=== PATIENT | female | born 1975 | race Two or more races ===

== ENCOUNTER 2024-04-13 00:06 | Inpatient (IN) | payer OTHER, SELFPAY ==
[~2024-04-13] VITALS: Ht 160 cm; Wt 114.1 kg
[2024-04-13] VITALS (7 sets, daily range): BP systolic 121–138; BP diastolic 58–97; PULSE 72–85; RESP 17–25; TEMP 97.8–98.1; O2SAT 94–98
[2024-04-13] MEDS: LORazepam 0.5 MG TAB PO ONE (00:12)
[2024-04-13 00:40] LABS: Basophils # (auto) 0.1 10 ^3/uL (0-0.2); Basophils % (auto) 1.1 % (0.0-2.0); Eosinophils # (auto) 0.1 10 ^3/uL (0-0.8); Eosinophils % (auto) 0.8 % (0.0-7.0); Hematocrit 44.5 % (36.0-46.0); Hemoglobin 14.6 g/dL (12.2-16.2); Lymphocytes # (auto) 2.4 10 ^3/uL (0.4-5.4); Lymphocytes % (auto) 30.2 % (10.0-50.0); Mean Corpuscular Hemoglobin 27.3 pg (28.0-32.0); Mean Corpuscular Hgb Conc. 32.8 g/dL (32.0-36.0); Mean Corpuscular Volume 83.5 fL (80.0-100.0); Monocytes # (auto) 0.7 10 ^3/uL (0-1.3); Monocytes % (auto) 9.2 % (0.0-12.0); Neutrophils # (auto) 4.7 10 ^3/uL (1.6-8.6); Neutrophils % (auto) 58.7 % (37.0-80.0); Nucleated Red Blood Cells % 0.1 %; Red Blood Cells 5.33 10^6/uL (4.0-5.20); Red Cell Distribution Width 17.7 % (11.8-14.3); White Blood Cell 7.9 10^3/uL (4.4-10.8)
[2024-04-13 00:49] LABS: Alanine Aminotransferase 25 U/L (7-40); Albumin 4.2 g/dL (3.2-4.8); Alkaline Phosphatase 110 U/L (46-116); Anion Gap 12 (5-15); Aspartate Aminotransferase 33 U/L (13-40); BUN/Creatinine Ratio 16.9 (10.0-20.0); Bilirubin, Total 0.9 mg/dL (0.2-1.0); Blood Urea Nitrogen 15 mg/dL (9-23); Calcium 9.4 mg/dL (8.7-10.4); Carbon Dioxide 21 mmol/L (20-30); Chloride 106 mmol/L (98-107); Glucose 146 mg/dL (74-106); Potassium 3.5 mmol/L (3.5-5.1); Sodium 139 mmol/L (136-145); Total Protein 7.4 g/dL (5.7-8.2)
[2024-04-13 04:10] LABS: Urine Bacteria FEW /hpf (None Seen); Urine Blood 3+ /uL (Negative); Urine Clarity Turbid (Clear); Urine Color Yellow (Yellow); Urine Mucus FEW (None Seen); Urine Protein, UAD TRACE (Negative); Urine Specific Gravity 1.017 (1.001-1.035); Urine Urobilinogen Normal (Negative); Urine WBC 17 /hpf (0 - 5); Urine pH 5.5 (5.0-9.0)
[2024-04-13 04:14] LABS: Amphetamine Screen, Urine Pos (NEGATIVE); Barbiturate Scree,Urine Neg (NEGATIVE); Benzodiazephine Screen, Urine Neg (NEGATIVE); Cannabinoid Screen, Urine Pos (NEGATIVE); Cocaine Screen, Urine Neg (NEGATIVE); Opiate Scree,Urine Neg (NEGATIVE); Phencyclidine Screen, Urine Neg (NEGATIVE)
[2024-04-13] MEDS: FUROSEMIDE 40 MG/4 ML VIAL IV ONE (04:26)
[2024-04-13] MEDS ORDERED: NITROGLYCERIN 0.4 MG SL TAB SL PRN (04:30)
[2024-04-13] MEDS ORDERED: MORPHINE SULFATE INJ 2 MG/ml SYRG IV PRN (04:30)
[2024-04-13] MEDS ORDERED: ONDANSETRON HCL 4 MG/2 ML VIAL IV PRN (04:30)
[2024-04-13 04:43] LABS: Triglycerides 115 mg/dL (< 150)
[2024-04-13 04:44] LABS: LDL Cholesterol 82 mg/dL (< 100)
[2024-04-13 04:45] LABS: HDL Cholesterol 38 mg/dL (40-59)
[2024-04-13 04:46] LABS: Cholesterol 126 mg/dL (< 200)
[2024-04-13] MEDS: FUROSEMIDE 20 MG/2 ML VIAL IV SCH ×2 (06:27→19:51)
[2024-04-13] MEDS ORDERED: LORazepam 2MG/ML-1ML VIAL IV PRN (10:00)
[2024-04-13] MEDS: ASPirin 81 mg TAB PO SCH (10:13)
[2024-04-13] MEDS: CARVEDILOL 3.125 MG TAB PO SCH (10:13)
[2024-04-13] MEDS: LORazepam 2MG/ML-1ML VIAL IV ONE (10:20)
[2024-04-13] MEDS ORDERED: FUROSEMIDE 20 MG/2 ML VIAL IV SCH (19:30)
[2024-04-13] MEDS: cefTRIAXone 1GM/50ML D5W 50 ML IV ONE (19:49)
[2024-04-13] MEDS: ENOXAPARIN SOD 60 MG/0.6 ML SYRINGE SC ONE (20:14)
[2024-04-13] MEDS: TEMAZEPAM 15 MG CAP PO PRN (21:49)
[2024-04-13] MEDS: ATORVASTATIN 20 MG TAB PO SCH (21:50)
[2024-04-14] VITALS (9 sets, daily range): BP systolic 114–138; BP diastolic 75–96; PULSE 62–75; RESP 15–20; TEMP 97.5–98.7; O2SAT 95–99
[2024-04-14 06:42] LABS: Basophils # (auto) 0.1 10 ^3/uL (0-0.2); Eosinophils # (auto) 0.1 10 ^3/uL (0-0.8); Eosinophils % (auto) 2.4 % (0.0-7.0); Hematocrit 42.1 % (36.0-46.0); Lymphocytes # (auto) 1.7 10 ^3/uL (0.4-5.4); Lymphocytes % (auto) 27.8 % (10.0-50.0); Mean Corpuscular Hemoglobin 27.4 pg (28.0-32.0); Mean Corpuscular Hgb Conc. 33.2 g/dL (32.0-36.0); Mean Corpuscular Volume 82.4 fL (80.0-100.0); Monocytes # (auto) 0.7 10 ^3/uL (0-1.3); Monocytes % (auto) 12.1 % (0.0-12.0); Neutrophils # (auto) 3.5 10 ^3/uL (1.6-8.6); Neutrophils % (auto) 56.7 % (37.0-80.0); Nucleated Red Blood Cells % 0.1 %; Red Blood Cells 5.11 10^6/uL (4.0-5.20); Red Cell Distribution Width 17.3 % (11.8-14.3); White Blood Cell 6.1 10^3/uL (4.4-10.8)
[2024-04-14 06:47] LABS: Chloride 102 mmol/L (98-107); Potassium 3.2 mmol/L (3.5-5.1); Sodium 138 mmol/L (136-145)
[2024-04-14 06:48] LABS: Anion Gap 10 (5-15); Carbon Dioxide 26 mmol/L (20-30)
[2024-04-14 06:49] LABS: Calcium 8.7 mg/dL (8.7-10.4)
[2024-04-14 06:53] LABS: BUN/Creatinine Ratio 25.7 (10.0-20.0); Blood Urea Nitrogen 19 mg/dL (9-23); Glucose 122 mg/dL (74-106)
[2024-04-14] MEDS: ENOXAPARIN SOD 60 MG/0.6 ML SYRINGE SC SCH (09:14)
[2024-04-14] MEDS: cefTRIAXone 1GM/50ML D5W 50 ML IV SCH (09:14)
[2024-04-14] MEDS: SPIRONOLACTONE 25 MG TAB PO SCH (09:15)
[2024-04-14] MEDS: POTASSIUM CHL 20 Meq TABLET PO ONE (09:15)
[2024-04-14] MEDS: SACUBITRIL-VALSARTAN 24mg/26mg TAB PO SCH (09:15)
[2024-04-14] MEDS ORDERED: ENOXAPARIN SOD 60 MG/0.6 ML SYRINGE SC SCH (10:00)
[2024-04-14] MEDS: EMPAGLIFLOZIN 10 MG TAB PO SCH (17:02)
[2024-04-14] MEDS: LORazepam 2MG/ML-1ML VIAL IV PRN (17:54)
[2024-04-15] VITALS (8 sets, daily range): BP systolic 109–120; BP diastolic 71–89; PULSE 59–78; RESP 15–22; TEMP 97.6–98; O2SAT 95–99
[2024-04-15 06:09] LABS: Basophils # (auto) 0 10 ^3/uL (0-0.2); Basophils % (auto) 0.5 % (0.0-2.0); Eosinophils # (auto) 0.2 10 ^3/uL (0-0.8); Eosinophils % (auto) 2.3 % (0.0-7.0); Hematocrit 44.9 % (36.0-46.0); Hemoglobin 15.1 g/dL (12.2-16.2); Lymphocytes % (auto) 30.1 % (10.0-50.0); Mean Corpuscular Hemoglobin 27.6 pg (28.0-32.0); Mean Corpuscular Hgb Conc. 33.5 g/dL (32.0-36.0); Mean Corpuscular Volume 82.5 fL (80.0-100.0); Monocytes # (auto) 0.9 10 ^3/uL (0-1.3); Monocytes % (auto) 12.9 % (0.0-12.0); Neutrophils # (auto) 3.7 10 ^3/uL (1.6-8.6); Neutrophils % (auto) 54.2 % (37.0-80.0); Nucleated Red Blood Cells % 0.1 %; Red Blood Cells 5.44 10^6/uL (4.0-5.20); Red Cell Distribution Width 17.3 % (11.8-14.3); White Blood Cell 6.8 10^3/uL (4.4-10.8)
[2024-04-15 06:33] LABS: Anion Gap 10 (5-15); Calcium 8.9 mg/dL (8.7-10.4); Carbon Dioxide 24 mmol/L (20-30); Chloride 103 mmol/L (98-107); Sodium 137 mmol/L (136-145)
[2024-04-15 06:39] LABS: BUN/Creatinine Ratio 23.2 (10.0-20.0); Blood Urea Nitrogen 19 mg/dL (9-23); Glucose 119 mg/dL (74-106)
[2024-04-15] MEDS: FUROSEMIDE 20 MG TAB PO SCH (09:35)
[2024-04-15] MEDS ORDERED: CARV6.2517 PO (09:45)
[2024-04-15] MEDS ORDERED: ASPI-543 PO ×2 (09:45→13:42)
[2024-04-15] MEDS ORDERED: ENOXAPARIN SOD 40 MG/0.4 ML SYRINGE SC SCH (10:00)
[2024-04-15] MEDS ORDERED: SPIR25TA PO (13:42)
[2024-04-15] MEDS ORDERED: SACU1TAB PO (13:42)
[2024-04-15] MEDS ORDERED: ATOR20TA50 PO (13:42)
[2024-04-15] MEDS ORDERED: EMPA1TAB PO (13:42)
[2024-04-15] MEDS ORDERED: CARV-214 PO (13:42)
[2024-04-15] MEDS: busPIRone HCL 10 MG TAB PO ONE (15:54)
[2024-04-15] MEDS: QUEtiapine FUMARATE 25 MG TAB PO SCH (21:19)
[2024-04-15] MEDS: busPIRone HCL 10 MG TAB PO SCH (21:22)
[2024-04-16] VITALS (7 sets, daily range): BP systolic 109–132; BP diastolic 53–86; PULSE 59–80; RESP 17–19; TEMP 97.6–98.4; O2SAT 93–98
[2024-04-16 05:30] LABS: Basophils # (auto) 0 10 ^3/uL (0-0.2); Basophils % (auto) 0.6 % (0.0-2.0); Eosinophils # (auto) 0.2 10 ^3/uL (0-0.8); Eosinophils % (auto) 2.3 % (0.0-7.0); Hematocrit 47.6 % (36.0-46.0); Hemoglobin 15.6 g/dL (12.2-16.2); Lymphocytes # (auto) 2.2 10 ^3/uL (0.4-5.4); Lymphocytes % (auto) 28.3 % (10.0-50.0); Mean Corpuscular Hemoglobin 27.4 pg (28.0-32.0); Mean Corpuscular Hgb Conc. 32.9 g/dL (32.0-36.0); Mean Corpuscular Volume 83.4 fL (80.0-100.0); Monocytes # (auto) 0.9 10 ^3/uL (0-1.3); Monocytes % (auto) 11.7 % (0.0-12.0); Neutrophils # (auto) 4.4 10 ^3/uL (1.6-8.6); Neutrophils % (auto) 57.1 % (37.0-80.0); Nucleated Red Blood Cells % 0.1 %; Red Blood Cells 5.71 10^6/uL (4.0-5.20); Red Cell Distribution Width 17.2 % (11.8-14.3); White Blood Cell 7.7 10^3/uL (4.4-10.8)
[2024-04-16 05:40] LABS: Chloride 107 mmol/L (98-107); Potassium 4.7 mmol/L (3.5-5.1); Sodium 136 mmol/L (136-145)
[2024-04-16 05:41] LABS: Anion Gap 7 (5-15); Carbon Dioxide 22 mmol/L (20-30)
[2024-04-16 05:46] LABS: BUN/Creatinine Ratio 21.1 (10.0-20.0); Blood Urea Nitrogen 16 mg/dL (9-23); Glucose 125 mg/dL (74-106)
[2024-04-16] MEDS: FLUoxetine HCL 20 MG CAP PO SCH (09:09)
[2024-04-16] MEDS: LORazepam 0.5 MG TAB PO PRN (12:57)
[2024-04-17 01:00] VITALS: BP 110/51; PULSE 67; RESP 18; O2SAT 98
[2024-04-17 04:54] VITALS: BP 127/77; PULSE 75; RESP 19; O2SAT 98
[2024-04-17 06:03] LABS: Basophils # (auto) 0 10 ^3/uL (0-0.2); Basophils % (auto) 0.7 % (0.0-2.0); Eosinophils # (auto) 0.2 10 ^3/uL (0-0.8); Eosinophils % (auto) 2.3 % (0.0-7.0); Hematocrit 46.9 % (36.0-46.0); Hemoglobin 15.5 g/dL (12.2-16.2); Lymphocytes # (auto) 2.1 10 ^3/uL (0.4-5.4); Lymphocytes % (auto) 29.2 % (10.0-50.0); Mean Corpuscular Hemoglobin 27.5 pg (28.0-32.0); Mean Corpuscular Volume 83.3 fL (80.0-100.0); Monocytes # (auto) 0.9 10 ^3/uL (0-1.3); Monocytes % (auto) 11.9 % (0.0-12.0); Neutrophils % (auto) 55.9 % (37.0-80.0); Nucleated Red Blood Cells % 0.1 %; Red Blood Cells 5.63 10^6/uL (4.0-5.20); Red Cell Distribution Width 17.1 % (11.8-14.3); White Blood Cell 7.2 10^3/uL (4.4-10.8)
[2024-04-17 06:09] LABS: Calcium 9.4 mg/dL (8.7-10.4); Chloride 106 mmol/L (98-107); Potassium 5.1 mmol/L (3.5-5.1); Sodium 135 mmol/L (136-145)
[2024-04-17 06:10] LABS: Anion Gap 7 (5-15); Carbon Dioxide 22 mmol/L (20-30)
[2024-04-17 06:15] LABS: BUN/Creatinine Ratio 22.2 (10.0-20.0); Blood Urea Nitrogen 18 mg/dL (9-23); Glucose 133 mg/dL (74-106)
[2024-04-17 08:00] VITALS: PULSE 61; PULSE 63; RESP 18; O2SAT 95
[2024-04-17 11:22] VITALS: BP_SYST 104; BP_SYST 99; BP_DIAS 53; BP_DIAS 63; PULSE 58; PULSE 62; RESP 16; TEMP 36.9; O2SAT 95
[2024-04-17] MEDS ORDERED: FLUO20CA90 PO (13:32)
[2024-04-17] MEDS ORDERED: BUSP10TA31 PO (13:32)
[2024-04-17] MEDS ORDERED: QUET1TAB11 PO (13:32)
== END 2024-04-17 14:10 | disposition home or self-care (01) | DRG 291 ==
LOC: ER 00:06 → TELE 04:24 → TELE-WESTW 08:17
PROVIDERS: ADMIT Internal Medicine Geriatric Medicine; ATTEND Emergency Medicine
DX: I11.0 Hypertensive heart disease with heart failure (principal); I50.23 Acute on chronic systolic (congestive) heart failure; J96.01 Acute respiratory failure with hypoxia; F10.139 Alcohol abuse with withdrawal, unspecified; F33.3 Major depressive disorder, recurrent, severe with psychotic symptoms; R45.851 Suicidal ideations; Z68.41 Body mass index [BMI] 40.0-44.9, adult; Y90.9 Presence of alcohol in blood, level not specified; F15.10 Other stimulant abuse, uncomplicated; E66.01 Morbid (severe) obesity due to excess calories; E11.9 Type 2 diabetes mellitus without complications; I25.10 Atherosclerotic heart disease of native coronary artery without angina pectoris; E78.5 Hyperlipidemia, unspecified; E87.6 Hypokalemia; F41.9 Anxiety disorder, unspecified; Z79.82 Long term (current) use of aspirin; Z79.899 Other long term (current) drug therapy; Z56.0 Unemployment, unspecified; I25.2 Old myocardial infarction
CPT/HCPCS: 36415; 71045; 80048; 80053; 80061; 80307; 81001; 83036; 83880; 84484; 85025; 93005; 93306; G0378

== ENCOUNTER 2024-08-16 23:13 | Emergency (ER) | payer SELFPAY ==
[~2024-08-16] VITALS: Ht 160 cm; Wt 86.2 kg
[~2024-08-16 23:13] MED LIST: ASPI-543 PO; ATOR20TA50 PO; BUSP10TA31 PO; CARV-214 PO; CARV6.2517 PO; EMPA1TAB PO; FLUO-470 PO; QUET1TAB11 PO; SACU1TAB PO; SPIR25TA PO
--- NOTE | 2024-08-16 23:52 | ED.PDOC ---
History of Present Illness HPI Comments 49 y/o F, with a Hx of anxiety, depression, CHF, DM, HTN, morbid obesity, and polysubstance abuse, is BIBA for c/o generalized weakness and back pain s/p mechanical fall and injury and medication overdose, today. Per EMS report, staff received call from local crisis center after patient went their endorsing of symptoms after taking 15-20x of her 1mg Xanax Rx medication and then falling 3x on her back, earlier, this evening. Patient states on falls being due to weakness onset after taking aforementioned medications and the taking said medications, due to running out of her Prozac medications for the past 3x months and having persisting suicidal ideations with auditory hallucinations that include voices telling the patient to harm/kill herself. Patient denies having any tingling, numbness, dizziness, headache, homicidal ideations, visual hallucinations, or other associated symptoms or modifiers at this time. Chief Complaint: Suicidal Time Seen by MD: 23:30 Reviewed Notes: Nurses Notes, Wool Puller Notes, Medications, Allergies Allergies: Coded Allergies: NO KNOWN ALLERGIES (Unverified , 04/13/24) Home Meds Active Scripts Fluoxetine HCl (Fluoxetine HCl) 20 Mg Cap, 20 MG PO DAILY for 30 Days, #30 CAP Prov:REI MOTA RESIDENT 04/17/24 Quetiapine Fumerate (QUETIAPINE FUMARATE) 25 Mg Tab, 25 MG PO HS for 30 Days, #30 TAB Prov:REI MOTA RESIDENT 04/17/24 Buspirone HCl (Buspirone HCl) 10 Mg Tab, 5 MG PO Q12HR for 30 Days, #60 TAB Prov:REI MOTA RESIDENT 04/17/24 Spironolactone (Aldactone) 25 Mg Tab, 25 MG PO DAILY for 90 Days, #90 TAB Prov:ISABELLA BARRIOS RESIDENT 04/15/24 Sacubitril-Valsartan (Entresto 24-26 mg) 1 Tab Tab, 1 TAB PO BID for 90 Days, #180 TAB Prov:ISABELLA BARRIOS RESIDENT 04/15/24 Empagliflozin (Jardiance) 10 Mg Tab, 10 MG PO DAILY for 90 Days, #90 TAB Prov:ISABELLA BARRIOS RESIDENT 04/15/24 Atorvastatin Calcium (ATORVASTATIN CALCIUM) 20 Mg Tab, 40 MG PO HS for 90 Days, #180 TAB Prov:ISABELLA BARRIOS RESIDENT 04/15/24 Carvedilol (COREG) 3.125 Mg Tab, 3.125 MG PO Q12HR for 90 Days, #180 TAB Prov:ISABELLA BARRIOS RESIDENT 04/15/24 Aspirin (Aspir-Low) 81 Mg Tab, 81 MG PO DAILY for 90 Days, #90 MG Prov:ISABELLA BARRIOS RESIDENT 04/15/24 Reported Medications Carvedilol (Coreg) 6.25 Mg Tab, 1 TAB PO DAILY, #180 TAB 1 Refill 04/15/24 Information Source: Patient, Emergency Med Personnel Mode of Arrival: EMS Severity: Moderate Timing: Hours Duration: Since onset Prehospital treatment: 12 Lead EKG, Switch Engineer Past Medical History PAST MEDICAL HISTORY: Anxiety, CHF, Depression, DM, HTN Past Medical History (Other): morbid obesity Surgical History: Denies all surgeries CYBER INSTRUCTOR History: No Pertinent CYBER INSTRUCTOR History Family History Family History: Reviewed,noncontributory to illness, No family hx of Cancer, No family hx of DM, No family hx of Heart esme, No family hx of HTN, No family hx ofKidney esme, No family hx of Liver esme, No family hx of Lung esme, No family hx of Stroke Social History Smoker: Cigarettes Alcohol: Occasionally Drugs: Marijuana Lives In: Home All Other Systems: Reviewed and Negative (see HPI) Physical Exam General Appearance: Mild Distress, Obese HEENT: Normal ENT Inspection, Pharynx Normal, TMs Normal Neck: Full Range of Motion, Non-Tender, Normal, Normal Inspection Respiratory: Chest Non-Tender, Lungs Clear, No Accessory Muscle Use, No Respiratory Distress, Normal Breath Sounds Cardiovascular: No Edema, No JVD, No Murmur, No Gallop, Normal Peripheral Pulses, Regular Rate/Rhythm Breast Exam: Deferred Gastrointestinal: No Organomegaly, Non Tender, No Pulsatile Mass, Normal Bowel Sounds, Soft Genitalia: Deferred Pelvic: Deferred Rectal: Deferred Extremities: No calf tenderness, Normal capillary refill, Normal inspection, No rmal range of motion, Non-tender, No pedal edema Musculoskeletal : Apperance: Normal Neurologic: Alert, briar cutter II-XII nml as Tested, No Motor Deficits, Normal Affect, Normal Mood, No Sensory Deficits Cerebellar Function: Normal Reflexes: Normal Skin: Dry, Normal Color, Warm Lymphatic: No Adenopathy Was a procedure done? Was a procedure done?: No Differential Dx Considerations may include: medication overdose, encephalopathy, electrolyte imbalance, musculoskeletal pain, fracture, sprain, dislocation, suicidal ideations, schizophrenia, depression, hopelessness X-Ray, Labs, Meds, VS Vital Signs Date Time Temp Pulse Resp B/P (MAP) Pulse Ox O2 Delivery O2 Flow Rate FiO2 08/17/24 03:40 97.7 08/17/24 03:00 97.7 91 16 120/64 (82) 93 97.7 08/17/24 03:00 91 16 93 Room Air* 0 21 08/16/24 23:21 97.7 86 18 126/83 (97) 99 Lab Test 08/17/24 02:43 08/17/24 01:10 08/17/24 00:15 Range/Units Urine Color Light-yellow Yellow Urine Clarity Clear Clear Urine pH 5.0 5.0-9.0 Urine Specific [place] 1.012 1.001-1.035 Urine Protein Negative Negative Urine Ketones Negative Negative Urine Blood Negative Negative /uL Urine Nitrite Negative Negative Urine Bilirubin Negative Negative Urine Urobilinogen Normal Negative mg/dL Urine Leukocyte Esterase Negative Negative /uL Urine RBC 2 0 - 4 /hpf Urine WBC 1 0 - 5 /hpf Urine Squamous Epithelial Cells Few <5 /hpf Urine Bacteria None seen None Seen /hpf Urine Glucose Normal Normal mg/dL Urine Opiates Screen Neg NEGATIVE Urine Fentanyl Screen Neg NEGATIVE Urine Barbiturates Screen Neg NEGATIVE Urine Phencyclidine Screen Neg NEGATIVE Urine Amphetamines Screen Neg NEGATIVE Urine Benzodiazepines Screen Pos NEGATIVE Urine Cocaine Screen Neg NEGATIVE Urine Cannabinoids Screen Pos NEGATIVE Troponin I High Sensitivity 7 8 </=34 ng/L White Blood Count 10.7 4.4-10.8 10^3/uL Red Blood Count 5.96 H 4.0-5.20 10^6/uL Hemoglobin 16.8 H 12.2-16.2 g/dL Hematocrit 51.9 H 36.0-46.0 % Mean Corpuscular Volume 87.0 80.0-100.0 fL Mean Corpuscular Hemoglobin 28.1 28.0-32.0 pg Mean Corpuscular Hemoglobin Concent 32.3 32.0-36.0 g/dL Red Cell Distribution Width 17.3 H 11.8-14.3 % Platelet Count 430 140-450 10^3/uL Mean Platelet Volume 8.3 6.9-10.8 fL Neutrophils (%) (Auto) 68.0 37.0-80.0 % Lymphocytes (%) (Auto) 20.9 10.0-50.0 % Monocytes (%) (Auto) 8.3 0.0-12.0 % Eosinophils (%) (Auto) 1.6 0.0-7.0 % Basophils (%) (Auto) 1.2 0.0-2.0 % Neutrophils # (Auto) 7.3 1.6-8.6 10 ^3/uL Lymphocytes # (Auto) 2.2 0.4-5.4 10 ^3/uL Monocytes # (Auto) 0.9 0-1.3 10 ^3/uL Eosinophils # (Auto) 0.2 0-0.8 10 ^3/uL Basophils # (Auto) 0.1 0-0.2 10 ^3/uL Nucleated Red Blood Cells 0.1 % Sodium Level 141 136-145 mmol/L Potassium Level 4.2 3.5-5.1 mmol/L Chloride Level 108 H 98-107 mmol/L Carbon Dioxide Level 20 20-31 mmol/L Anion Gap 13 5-15 Blood Urea Nitrogen 15 9-23 mg/dL Creatinine 0.79 0.550-1.02 mg/dL Glomerular Filtration Rate Calc 92 >90 mL/min BUN/Creatinine Ratio 19.0 10.0-20.0 Serum Glucose 122 H 74-106 mg/dL Calcium Level 10.4 8.7-10.4 mg/dL Total Bilirubin 1.0 0.2-1.0 mg/dL Aspartate Amino Transferase (AST) 32 13-40 U/L Alanine Aminotransferase (ALT) 28 7-40 U/L Alkaline Phosphatase 128 H 46-116 U/L Total Protein 8.0 5.7-8.2 g/dL Albumin 4.7 3.2-4.8 g/dL Beta HCG, Quantitative 1.7 1.5-4.2 mIU/mL Salicylates Level < 3.0 -30 mg/dL Acetaminophen Level < 2.0 L 10.0-20.0 UG/ML Plasma/Serum Blood Alcohol 3.9 <10 mg/dL Current Medications Medications (Trade) Dose Ordered Sig/[place] Route Start Time Stop Time Status Last Admin Ibuprofen (Motrin Tablet) 800 mg ONCE ONCE PO 08/17/24 00:00 08/17/24 00:02 DC 08/17/24 02:40 Urine drug screen was positive for marijuana and benzodiazepine. CBC and CMP were normal. Salicylate is acetaminophen and alcohol level are normal. Troponins are seven and eight. EKG shows no signs of ischemia. Tele psych consultation submitted. Time of 1ST Reevaluation: 00:00 Reevaluation 1ST: Unchanged Patient Education/Counseling: Diagnosis, Treatment Family Education/Counseling: No Family Present Departure 1 Departure Time of Disposition: 04:37 Impression: Primary Impression: Xanax overdose Additional Impression: Chest pain Qualified Codes: R07.9 - Chest pain, unspecified Disposition: 30 STILL A PATIENT Condition: Guarded Discharged With: Self Critical Care Note Critical Care Time?: Yes (35 min-critical care time only) Stability Stability form required: No Heart Score Heart Score: Heart Score Response (Comments) Value History N/A 0 EKG N/A 0 Age N/A 0 Risk Factors N/A 0 Troponin N/A 0 Total 0 I personally scribed for LADI BRINK MD ([email or web address]) on 08/16/24 at 23:52. Electronically submitted by Cain Whittaker ([email or web address]). LADI BRINK MD Aug 16, 2024 23:52
[2024-08-17 00:33] LABS: Basophils # (auto) 0.1 10 ^3/uL (0-0.2); Basophils % (auto) 1.2 % (0.0-2.0); Eosinophils # (auto) 0.2 10 ^3/uL (0-0.8); Eosinophils % (auto) 1.6 % (0.0-7.0); Hematocrit 51.9 % (36.0-46.0); Hemoglobin 16.8 g/dL (12.2-16.2); Lymphocytes # (auto) 2.2 10 ^3/uL (0.4-5.4); Lymphocytes % (auto) 20.9 % (10.0-50.0); Mean Corpuscular Hemoglobin 28.1 pg (28.0-32.0); Mean Corpuscular Hgb Conc. 32.3 g/dL (32.0-36.0); Monocytes # (auto) 0.9 10 ^3/uL (0-1.3); Monocytes % (auto) 8.3 % (0.0-12.0); Neutrophils # (auto) 7.3 10 ^3/uL (1.6-8.6); Nucleated Red Blood Cells % 0.1 %; Platelet Count (auto) 430 10^3/uL (140-450); Red Blood Cells 5.96 10^6/uL (4.0-5.20); Red Cell Distribution Width 17.3 % (11.8-14.3); White Blood Cell 10.7 10^3/uL (4.4-10.8)
[2024-08-17 00:48] LABS: Alanine Aminotransferase 28 U/L (7-40); Albumin 4.7 g/dL (3.2-4.8); Anion Gap 13 (5-15); Aspartate Aminotransferase 32 U/L (13-40); Blood Urea Nitrogen 15 mg/dL (9-23); Calcium 10.4 mg/dL (8.7-10.4); Carbon Dioxide 20 mmol/L (20-31); Potassium 4.2 mmol/L (3.5-5.1); Sodium 141 mmol/L (136-145)
[2024-08-17 00:51] LABS: Alkaline Phosphatase 128 U/L (46-116); Chloride 108 mmol/L (98-107); Glucose 122 mg/dL (74-106); Salicylate < 3.0 mg/dL (-30)
[2024-08-17 02:02] LABS: Blood Alcohol 3.9 mg/dL (<10)
[2024-08-17 02:32] LABS: Acetaminophen < 2.0 UG/ML (10.0-20.0)
[2024-08-17] MEDS: IBUPROFEN 800 MG TAB PO ONE (02:40)
[2024-08-17 02:53] LABS: Urine Bacteria None Seen /hpf (None Seen)
[2024-08-17 03:00] VITALS: PULSE 91; RESP 16; O2SAT 93
[2024-08-17 03:08] LABS: Urine Blood Negative /uL (Negative); Urine Clarity Clear (Clear); Urine Color Light-Yellow (Yellow); Urine Protein, UAD Negative (Negative); Urine Specific Gravity 1.012 (1.001-1.035); Urine Urobilinogen Normal (Negative); Urine WBC 1 /hpf (0 - 5)
[2024-08-17 03:19] LABS: Amphetamine Screen, Urine Neg (NEGATIVE); Barbiturate Scree,Urine Neg (NEGATIVE); Benzodiazephine Screen, Urine Pos (NEGATIVE); Cannabinoid Screen, Urine Pos (NEGATIVE); Cocaine Screen, Urine Neg (NEGATIVE); Opiate Scree,Urine Neg (NEGATIVE); Phencyclidine Screen, Urine Neg (NEGATIVE)
--- NOTE | 2024-08-17 06:42 | ECG ---
[facility] Test Date: 2024-08-17 Test Time: 06:41:13 Pat Name: RAYMOND HAWLEY Department: ED Room: Gender: F Operations Manager/Coordinator: MEKA : 1975 Requested By: LADI BRINK Order Number: [id number] Reading MD: Aris Isaacs Measurements Intervals [place] Rate: 84 P: 46 GA: 191 QRS: 204 QRSD: 181 T: 34 QT: 463 QTc: 548 Interpretive Statements Sinus rhythm, Left bundle branch block Nonspecific intraventricular conduction delay Lateral infarct, recent Anterior infarct, acute (LAD) Electronically Signed On 08-23-2024 13:32:32 PST by Aris Isaacs Please click the below link to view image of tracing.
[2024-08-17 08:00] VITALS: BP 107/77; TEMP 98
[2024-08-17 08:05] VITALS: PULSE 77; RESP 18; O2SAT 92
--- NOTE | 2024-08-17 10:56 | DVHINCON2 ---
Date of Service if different f: Aug 17, 2024 Consultation ([facility]) Consulting Physician: MEREDITH BRUNER MD Labs Laboratory Tests Test 08/17/24 00:15 08/17/24 01:10 08/17/24 02:43 White Blood Count 10.7 10^3/uL (4.4-10.8) Red Blood Count 5.96 10^6/uL (4.0-5.20) Hemoglobin 16.8 g/dL (12.2-16.2) Hematocrit 51.9 % (36.0-46.0) Mean Corpuscular Volume 87.0 fL (80.0-100.0) Mean Corpuscular Hemoglobin 28.1 pg (28.0-32.0) Mean Corpuscular Hemoglobin Concent 32.3 g/dL (32.0-36.0) Red Cell Distribution Width 17.3 % (11.8-14.3) Platelet Count 430 10^3/uL (140-450) Mean Platelet Volume 8.3 fL (6.9-10.8) Neutrophils (%) (Auto) 68.0 % (37.0-80.0) Lymphocytes (%) (Auto) 20.9 % (10.0-50.0) Monocytes (%) (Auto) 8.3 % (0.0-12.0) Eosinophils (%) (Auto) 1.6 % (0.0-7.0) Basophils (%) (Auto) 1.2 % (0.0-2.0) Neutrophils # (Auto) 7.3 10 ^3/uL (1.6-8.6) Lymphocytes # (Auto) 2.2 10 ^3/uL (0.4-5.4) Monocytes # (Auto) 0.9 10 ^3/uL (0-1.3) Eosinophils # (Auto) 0.2 10 ^3/uL (0-0.8) Basophils # (Auto) 0.1 10 ^3/uL (0-0.2) Nucleated Red Blood Cells 0.1 % Sodium Level 141 mmol/L (136-145) Potassium Level 4.2 mmol/L (3.5-5.1) Chloride Level 108 mmol/L (98-107) Carbon Dioxide Level 20 mmol/L (20-31) Anion Gap 13 (5-15) Blood Urea Nitrogen 15 mg/dL (9-23) Creatinine 0.79 mg/dL (0.550-1.02) Glomerular Filtration Rate Calc 92 mL/min (>90) BUN/Creatinine Ratio 19.0 (10.0-20.0) Serum Glucose 122 mg/dL (74-106) Calcium Level 10.4 mg/dL (8.7-10.4) Total Bilirubin 1.0 mg/dL (0.2-1.0) Aspartate Amino Transf (AST/SGOT) 32 U/L (13-40) Alanine Aminotransferase (ALT/SGPT) 28 U/L (7-40) Alkaline Phosphatase 128 U/L (46-116) Total Protein 8.0 g/dL (5.7-8.2) Albumin 4.7 g/dL (3.2-4.8) Beta HCG, Quantitative 1.7 mIU/mL (1.5-4.2) Salicylates Level < 3.0 mg/dL (-30) Acetaminophen Level < 2.0 UG/ML (10.0-20.0) Plasma/Serum Blood Alcohol 3.9 mg/dL (<10) Troponin I High Sensitivity 7 ng/L (</=34) Urine Color Light-yellow (Yellow) Urine Clarity Clear (Clear) Urine pH 5.0 (5.0-9.0) Urine Specific [place] 1.012 (1.001-1.035) Urine Protein Negative (Negative) Urine Ketones Negative (Negative) Urine Blood Negative /uL (Negative) Urine Nitrite Negative (Negative) Urine Bilirubin Negative (Negative) Urine Urobilinogen Normal mg/dL (Negative) Urine Leukocyte Esterase Negative /uL (Negative) Urine RBC 2 /hpf (0 - 4) Urine WBC 1 /hpf (0 - 5) Urine Squamous Epithelial Cells Few /hpf (<5) Urine Bacteria None seen /hpf (None Seen) Urine Glucose Normal mg/dL (Normal) Urine Opiates Screen Neg (NEGATIVE) Urine Fentanyl Screen Neg (NEGATIVE) Urine Barbiturates Screen Neg (NEGATIVE) Urine Phencyclidine Screen Neg (NEGATIVE) Urine Amphetamines Screen Neg (NEGATIVE) Urine Benzodiazepines Screen Pos (NEGATIVE) Urine Cocaine Screen Neg (NEGATIVE) Urine Cannabinoids Screen Pos (NEGATIVE) Appetite: Fair Appearance: Stated age, Disheveled Psychomotor activity: Lethargic Behavioral: Cooperative Eye contact: Limited Speech: Soft Affect: Mood Congruent Mood: Depressed Thought processes: Linear/Goal-directed Thought content: WNL Suicidal ideations: Present (active) Homicidal ideations: Absent Orientation: Person, Place, Time, Situation Memory intact: Recent Intellect: Average Abstractability: WNL Concentration: Adequate Attention: Adequate Judgement: Poor Insight: Fair Vitals Vital Signs Date Time Temp Pulse Resp B/P (MAP) Pulse Ox O2 Delivery O2 Flow Rate FiO2 08/17/24 08:05 77 18 92 Room Air* 0 21 08/17/24 08:00 98.0 107/77 (87) 98.0 Medication adjusted: Yes Diagnosis: MDD, unspecified anxiety disorder, Cannabis dependence Plan : Patient presented to ED after suicide attempt and continues to report suicidal ideation and wishes she succeed with suicide attempt Recommend 5150hold for DTS and transfer to psychiatric inpatient facility for stabilization and treatment. History of Present Illness Reason for Consult : suicide attempt and disposition HPI : This is a 49-year-old female with hx of depression and anxiety presented to ED after ingesting 15-20 pills of Xanax 1mg. Patient is evaluated via telepsychiatry. She reports feeling depressed, hopeless for the last few months. She was tired of living and took the pills to kill herself and she reports if she could do it again, she would. She denies any known trigger. She reports using her fluoxetine 20mg, Seroquel 25mg, and buspirone 10mg but stopped a few months ago after she lost her medical insurance. She continues to reports suicidal ideation. She denies homicidal thoughts. She reports hearing voices which tell her "you are no good, slit your wrist." Also some sounds of distorted radio. She denies any visual hallucinations or paranoia. Past Psychiatric History : She has prior psych admission. She denies prior suicide attempt. She has prior diagnosis of depression and anxiety. She stopped seeing her psychiatrist after loss of medical insurance. She reports prior use of fluoxetine, buspirone and Seroquel were helpful in the past. Past Medical History : Hx of CHF, Obesity, HTN Social History : She lives with and 2 children. She is not employed outside the home. She reports use of marijuana daily and all day. 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 She denies other substance use. She reports Father with hx of schizophrenia. KAISER STEWARD DNP Aug 17, 2024 10:56
== END 2024-08-17 15:00 | disposition home or self-care (01) ==
LOC: ER 23:13 → EDBD 23:13 → ER 08-17 15:00
DX: T42.4X2A Poisoning by benzodiazepines, intentional self-harm, initial encounter (principal); R10.2 Pelvic and perineal pain; R45.851 Suicidal ideations; R07.9 Chest pain, unspecified; I11.0 Hypertensive heart disease with heart failure; I50.9 Heart failure, unspecified; F32.9 Major depressive disorder, single episode, unspecified; F17.210 Nicotine dependence, cigarettes, uncomplicated; F12.20 Cannabis dependence, uncomplicated; E66.01 Morbid (severe) obesity due to excess calories; E11.9 Type 2 diabetes mellitus without complications; F41.9 Anxiety disorder, unspecified; Z79.82 Long term (current) use of aspirin; Z79.84 Long term (current) use of oral hypoglycemic drugs; Z79.899 Other long term (current) drug therapy
CPT/HCPCS: 36415; 80053; 80307; 80320; 80329; 81001; 84484; 84702; 85025; 93005

== ENCOUNTER 2024-11-02 10:53 | Emergency (ER) | payer OTHER, SELFPAY ==
[~2024-11-02] VITALS: Ht 160 cm; Wt 127.5 kg
--- NOTE | 2024-11-02 11:28 | ED.PDOC ---
SOB-HPI HPI Comments 49 y/o F, presents to the ED for CC shortness of breath. Patient states, that she has been experiencing shortness of breath with associated symptoms of cough, nausea, vomiting, and dizziness x1week. Patient endorses on, new onset symptoms of chest like pressure starting this morning (11/02/24). Patient comments on, cough to be productive with phlegm to be green in appearance. Patient denies tobacco usage, drinks occasional ETOH, and smokes marijuana. Patient denies fever, abdominal pain, chills, body-aches, or diarrhea. No other symptoms or modifying factors at this time. Chief Complaint: Shortness of Breath Time Seen by MD: 11:20 Reviewed notes: Nurses Notes, Medications, Allergies Information Source: Patient Mode of Arrival: Wheelchair Severity: Mild Timing: Days Duration: Since onset Context: Spontaneous Onset PE Risk Factors: None History of: CHF Prehospital treatment: None Modifying Factors: Nothing Associated Signs and Symptoms: Chest Pain Quality: Pressure Radiation: No Radiation Location: Substernal If cough with SOB: Green Past Medical History PAST MEDICAL HISTORY: Anxiety, CHF, Depression, DM, HTN, NM Surgical History: Tubal Ligation Surgical History (Other): left leg graft BUCKET PUSHER History: No Pertinent BUCKET PUSHER History Family History Family History: Reviewed,noncontributory to illness, No family hx of Cancer, No family hx of DM, No family hx of Heart esme, No family hx of HTN, No family hx ofKidney esme, No family hx of Liver esme, No family hx of Lung esme, No family hx of Stroke Social History Smoker: Cigarettes Alcohol: Occasionally Drugs: Marijuana Lives In: Home Constitutional: denies: chills, diaphoresis, fatigue, fever, malaise, sweats, weakness, others EENTM: denies: blurred vision, double vision, ear bleeding, ear discharge, ear drainage, ear pain, ear ringing, eye pain, eye redness, hearing loss, mouth pain, mouth swelling, nasal discharge, nose bleeding, nose congestion, nose pain, photophobia, tearing, throat pain, throat swelling, voice changes, others Respiratory: reports: cough, shortness of breath; denies: hemoptysis, orthopnea, SOB at rest, SOB with excertion, stridor, wheezing, others Cardiovascular: denies: chest pain, dizzy spells, diaphoresis, Dyspnea on exertion, edema, irregular heart beat, left arm pain, lightheadedness, palpitations, PND, syncope, others Gastrointestinal: reports: nausea, vomiting; denies: abdomen distended, abdominal pain, blood streaked bowels, constipated, diarrhea, dysphagia, diffi culty swallowing, hematemesis, melena, poor appetite, poor fluid intake, rectal bleeding, rectal pain, others Genitourinary: denies: abnormal vagina bleeding, burning, dyspareunia, dysuria, flank pain, frequency, hematuria, incontinence, pain, , vagina discharge, urgency, others Neurological: denies: dizziness, fainting, headache, left sided numbness, left sided weakness, numbness, paresthesia, pre-existing deficit, right sided numbness, right sided weakness, seizure, speech problems, tingling, tremors, weakness, others Musculoskeletal: denies: back pain, gout, joint pain, joint swelling, muscle pain, muscle stiffness, neck pain, others Integumetry: denies: bruises, change in color, change in hair/nails, dryness, laceration, lesions, lumps, rash, wounds, others Allergic/Immunocompromised: denies: Difficulty Healing, Frequent Infections, Hives, Itching, others Hematologic/Lymphatic: denies: anemia, blood clots, easy bleeding, easy bruising, swollen glands, others Endocrine: denies: excessive hunger, excessive sweating, excessive thirst, excessive urination, flushing, intolerance to cold, intolerance to heat, unexplained weight gain, unexplained weight loss, others Psychiatric: denies: anxiety, bipolar disorder, depression, hopeless, panic disorder, schizophrenia, sleepless, suicidal, others All Other Systems: Reviewed and Negative Physical Exam General Appearance: Moderate Distress HEENT: Normal ENT Inspection, Pharynx Normal, TMs Normal Neck: Full Range of Motion, Non-Tender, Normal, Normal Inspection Respiratory: Chest Non-Tender, Decreased Breath Sounds, No Accessory Muscle Use, Rales, Respiratory Distress Cardiovascular: No Edema, No JVD, No Murmur, No Gallop, Normal Peripheral Pulses, Regular Rate/Rhythm Breast Exam: Deferred Gastrointestinal: No Organomegaly, Non Tender, No Pulsatile Mass, Normal Bowel Sounds, Soft Genitalia: Deferred Pelvic: Deferred Rectal: Deferred Extremities: No calf tenderness, Normal capillary refill, Pedal edema Musculoskeletal : Apperance: Normal Neurologic: Alert, commercial stripper II-XII nml as Tested, No Motor Deficits, Normal Affect, Normal Mood, No Sensory Deficits Cerebellar Function: Normal Reflexes: Normal Skin: Dry, Normal Color, Warm Lymphatic: No Adenopathy EKG EKG : Pulse Rate (adult): 78 [place]: Normal Cardiac Rhythm: NSR Block: None Hypertrophy: LVH ST: Normal Was a procedure done? Was a procedure done?: No Differential Dx Differential Diagnosis: Anxiety, CHF, Pharyngitis, URI X-Ray, Labs, Meds, VS Vital Signs Date Time Temp Pulse Resp B/P (MAP) Pulse Ox O2 Delivery O2 Flow Rate FiO2 11/02/24 12:59 74 20 98 Room Air* 0 21 11/02/24 12:47 140/80 11/02/24 12:27 98.3 79 19 153/117 (129) 95 98.3 11/02/24 11:30 150/80 11/02/24 11:30 150/80 11/02/24 11:28 78 11/02/24 11:22 78 11/02/24 11:15 97.8 78 20 162/123 (136) 96 Lab Test 11/02/24 13:54 11/02/24 12:05 11/02/24 11:52 Range/Units Troponin I High Sensitivity 7 7 </=34 ng/L Influenza Type A Antigen Negative Negative Influenza Type B Antigen Negative Negative SARS-CoV-2 Antigen (Rapid) Negative NEGATIVE White Blood Count 8.0 4.4-10.8 10^3/uL Red Blood Count 5.27 H 4.0-5.20 10^6/uL Hemoglobin 13.8 12.2-16.2 g/dL Hematocrit 43.2 36.0-46.0 % Mean Corpuscular Volume 82.0 80.0-100.0 fL Mean Corpuscular Hemoglobin 26.2 L 28.0-32.0 pg Mean Corpuscular Hemoglobin Concent 32.0 32.0-36.0 g/dL Red Cell Distribution Width 16.7 H 11.8-14.3 % Platelet Count 330 140-450 10^3/uL Mean Platelet Volume 8.4 6.9-10.8 fL Neutrophils (%) (Auto) 80.5 H 37.0-80.0 % Lymphocytes (%) (Auto) 11.6 10.0-50.0 % Monocytes (%) (Auto) 6.6 0.0-12.0 % Eosinophils (%) (Auto) 0.6 0.0-7.0 % Basophils (%) (Auto) 0.7 0.0-2.0 % Neutrophils # (Auto) 6.4 1.6-8.6 10 ^3/uL Lymphocytes # (Auto) 0.9 0.4-5.4 10 ^3/uL Monocytes # (Auto) 0.5 0-1.3 10 ^3/uL Eosinophils # (Auto) 0 0-0.8 10 ^3/uL Basophils # (Auto) 0.1 0-0.2 10 ^3/uL Nucleated Red Blood Cells 0.2 % Sodium Level 138 136-145 mmol/L Potassium Level 4.7 3.5-5.1 mmol/L Chloride Level 108 H 98-107 mmol/L Carbon Dioxide Level 22 20-31 mmol/L Anion Gap 8 5-15 Blood Urea Nitrogen 22 9-23 mg/dL Creatinine 0.76 0.550-1.02 mg/dL Glomerular Filtration Rate Calc 97 >90 mL/min BUN/Creatinine Ratio 28.9 H 10.0-20.0 Serum Glucose 150 H 74-106 mg/dL Calcium Level 9.8 8.7-10.4 mg/dL B-Type Natriuretic Peptide 977.93 0-100 pg/mL Current Medications Medications (Trade) Dose Ordered Sig/Valentine Route Start Time Stop Time Status Last Admin Furosemide (Lasix Injection) 40 mg ONCE ONCE IV 11/02/24 11:30 11/02/24 11:31 DC 11/02/24 11:30 Aspirin 162 mg ONCE ONCE PO 11/02/24 11:30 11/02/24 11:31 DC 11/02/24 11:30 Nitroglycerin (Nitrodur 0.2MG/ Hr) 1 patch ONCE ONCE TD 11/02/24 11:30 11/02/24 11:31 DC 11/02/24 11:30 CXR: FINDINGS: Lines and Tubes: None Lungs: No focal consolidation. Pleura: No effusion. No pneumothorax. Cardiomediastinal contours:Moderate cardiomegaly. Pulmonary vasculature: Within normal limits. Bones: No acute osseous abnormality. IMPRESSION: 1. No acute cardiopulmonary disease. 2. Moderate cardiomegaly. HS:Y ATED BY: AMERICO MCCARTHY MD DICTATED DATE/TIME: 11/02/24 1150 SIGNED BY: AMERICO MCCARTHY MD SIGNED DATE/TIME: 11/02/24 1150 CC: The CBC is within normal limits The chemistry panel is within normal limits The BNP is elevated at 977 For the chest pain, the patient was given nitroglycerin as a patch The patient was also given aspirin 162 mg by mouth The patient was given Lasix for the acute on chronic diastolic heart failure The patient was being admitted A cardiology consult will be obtained. The troponin level x2 is negative Images Reviewed?: Images reviewed and evaluated by me Time of 1ST Reevaluation: 11:50 Reevaluation 1ST: Unchanged Time of 2ND Reevaluation: 14:31 Reevaluation 2ND: Improved Patient Education/Counseling: Diagnosis, Treatment, Prognosis Family Education/Counseling: No Family Present Additional Information - I reviewed the following notes from patient's past medical encounters:08/16/24 DX: SI - The following tests were ordered, and results were reviewed by me: TROPONIN X3, CBC, B-TYPE NATRIURETIC, UA, BMP, RAPID INFLUENZA A & B, COVID-19 ALMA, EKG X3 - I reviewed and agreed with the following test results read by other provider: CXR - I discussed treatments and results with medical personnel and: PATIENT Departure 1 Departure Time of Disposition: 14:31 Impression: Primary Impression: Acute on chronic diastolic heart failure Additional Impression: Acute coronary syndrome Disposition: ADMITTED INPATIENT Admit to: [facility] Condition: Fair Critical Care Note Critical Care Time?: Yes (35 min-critical care time only) Stability Stability form required: Yes Unstable for transfer: Telemetry monitoring (Telemetry monitoring required), ED Physician Assesment (Clinical assesment) Heart Score Heart Score: Heart Score Response (Comments) Value History Moderate Suspicious 1 EKG Normal 0 Age 45-64 1 Risk Factors >3 or Hx ASHD 2 Troponin Normal limit 0 Total 4 I personally scribed for ALLEY KEMP MD ([email or web address]) on 11/02/24 at 11:28. Electronically submitted by Holly Oswald ([email or web address]). I personally scribed for ALLEY KEMP MD ([email or web address]) on 11/02/24 at 12:13. Electronically submitted by Holly Oswald ([email or web address]). I personally scribed for ALLEY KEMP MD ([email or web address]) on 11/02/24 at 12:14. Electronically submitted by Holly Oswald [email or web address]). ALLEY KEMP MD Nov 02, 2024 11:28
[2024-11-02] MEDS: NITROGLYCERIN 0.2MG/HR TOPICAL PATCH TD ONE (11:30)
[2024-11-02] MEDS: FUROSEMIDE 40 MG/4 ML VIAL IV ONE (11:30)
[2024-11-02] MEDS: ASPirin 81 mg TAB PO ONE (11:30)
--- NOTE | 2024-11-02 11:53 | DVH ---
EXAM: XY CHEST TWO VIEWS ROUTINE CLINICAL HISTORY: sob COMPARISON: 04/13/2024 TECHNIQUE: Frontal and lateral view of the chest was obtained FINDINGS: Lines and Tubes: None Lungs: No focal consolidation. Pleura: No effusion. No pneumothorax. Cardiomediastinal contours:Moderate cardiomegaly. Pulmonary vasculature: Within normal limits. Bones: No acute osseous abnormality. IMPRESSION: 1. No acute cardiopulmonary disease. 2. Moderate cardiomegaly. HS:Y
[2024-11-02 12:09] LABS: Basophils # (auto) 0.1 10 ^3/uL (0-0.2); Basophils % (auto) 0.7 % (0.0-2.0); Eosinophils # (auto) 0 10 ^3/uL (0-0.8); Eosinophils % (auto) 0.6 % (0.0-7.0); Hematocrit 43.2 % (36.0-46.0); Hemoglobin 13.8 g/dL (12.2-16.2); Lymphocytes # (auto) 0.9 10 ^3/uL (0.4-5.4); Lymphocytes % (auto) 11.6 % (10.0-50.0); Mean Corpuscular Hemoglobin 26.2 pg (28.0-32.0); Monocytes # (auto) 0.5 10 ^3/uL (0-1.3); Monocytes % (auto) 6.6 % (0.0-12.0); Neutrophils # (auto) 6.4 10 ^3/uL (1.6-8.6); Neutrophils % (auto) 80.5 % (37.0-80.0); Nucleated Red Blood Cells % 0.2 %; Platelet Count (auto) 330 10^3/uL (140-450); Red Blood Cells 5.27 10^6/uL (4.0-5.20); Red Cell Distribution Width 16.7 % (11.8-14.3)
[2024-11-02 12:33] LABS: Calcium 9.8 mg/dL (8.7-10.4); Potassium 4.7 mmol/L (3.5-5.1); Sodium 138 mmol/L (136-145)
[2024-11-02 12:34] LABS: Anion Gap 8 (5-15); Carbon Dioxide 22 mmol/L (20-31)
[2024-11-02 12:35] LABS: Chloride 108 mmol/L (98-107)
[2024-11-02 12:39] LABS: BUN/Creatinine Ratio 28.9 (10.0-20.0); Blood Urea Nitrogen 22 mg/dL (9-23)
[2024-11-02 12:40] LABS: Glucose 150 mg/dL (74-106)
[2024-11-02 12:50] LABS: COVID19 ANTIGEN SOFIA FIA NEGATIVE (NEGATIVE); Rapid Influenza A Negative (Negative); Rapid Influenza B Negative (Negative)
[2024-11-02 12:59] VITALS: PULSE 74; RESP 20; O2SAT 98
[2024-11-02 17:36] VITALS: BP 144/96; PULSE 81; RESP 21; TEMP 98.3; O2SAT 95
--- NOTE | 2024-11-03 09:18 | ECG ---
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
== END 2024-11-02 20:55 | disposition left against medical advice (07) ==
LOC: ER 10:53
DX: I11.0 Hypertensive heart disease with heart failure (principal); I50.33 Acute on chronic diastolic (congestive) heart failure; I24.9 Acute ischemic heart disease, unspecified; E11.9 Type 2 diabetes mellitus without complications; F41.9 Anxiety disorder, unspecified; F17.210 Nicotine dependence, cigarettes, uncomplicated; Z20.822 Contact with and (suspected) exposure to COVID-19; Z98.51 Tubal ligation status; Z98.890 Other specified postprocedural states
CPT/HCPCS: 36415; 71046; 80048; 83880; 84484; 85025; 87426; 87804; 93005; 96374; 99291; J1940

== ENCOUNTER 2025-01-06 09:31 | Inpatient (IN) | payer MEDICAID, OTHER ==
[~2025-01-06] VITALS: Ht 160 cm; Wt 127.0 kg
--- NOTE | 2025-01-06 09:44 | ED.PDOC ---
HPI Comments 49 y/o F, with PMHx of DM, ME, HTN, CHF, Anxiety, and Depression presents to the ED for CC of hypertension. Patient states, she is coming from crisis center where she complained of severe anxiety and insomnia x3days; patient was relayed to the ED due to elevated blood pressure. Upon arrival to the ED, patient complains of new onset symptoms of shortness of breath. Patient's blood pressure read at 169/122mmHg; states non-compliance with blood pressure medication due to lack of insurance. Patient denies fever, chills, nausea, vomiting, or headache. No other associated symptoms, modifiers, recent injuries or sick contacts present at this time. Chief Complaint: High Blood Pressure Time Seen by MD: 09:45 Primary Care Provider: OWEN Reviewed Notes: Nurses Notes, Medications, Allergies Allergies: Coded Allergies: NO KNOWN ALLERGIES (Unverified , 04/13/24) Home Meds Active Scripts Fluoxetine HCl (Fluoxetine HCl) 20 Mg Cap, 20 MG PO DAILY for 30 Days, #30 CAP Prov:REI MOTA RESIDENT 04/17/24 Quetiapine Fumerate (QUETIAPINE FUMARATE) 25 Mg Tab, 25 MG PO HS for 30 Days, #30 TAB Prov:REI MOTA RESIDENT 04/17/24 Buspirone HCl (Buspirone HCl) 10 Mg Tab, 5 MG PO Q12HR for 30 Days, #60 TAB Prov:REI MOTA RESIDENT 04/17/24 Spironolactone (Aldactone) 25 Mg Tab, 25 MG PO DAILY for 90 Days, #90 TAB Prov:ISABELLA BARRIOS RESIDENT 04/15/24 Sacubitril-Valsartan (Entresto 24-26 mg) 1 Tab Tab, 1 TAB PO BID for 90 Days, #180 TAB Prov:ISABELLA BARRIOS RESIDENT 04/15/24 Empagliflozin (Jardiance) 10 Mg Tab, 10 MG PO DAILY for 90 Days, #90 TAB Prov:ISABELLA BARRIOS RESIDENT 04/15/24 Atorvastatin Calcium (ATORVASTATIN CALCIUM) 20 Mg Tab, 40 MG PO HS for 90 Days, #180 TAB Prov:ISABELLA BARRIOS 04/15/24 Carvedilol (COREG) 3.125 Mg Tab, 3.125 MG PO Q12HR for 90 Days, #180 TAB Prov:ISABELLA BARRIOS RESIDENT 04/15/24 Aspirin (Aspir-Low) 81 Mg Tab, 81 MG PO DAILY for 90 Days, #90 MG Prov:ISABELLA BARRIOS RESIDENT 04/15/24 Reported Medications Carvedilol (Coreg) 6.25 Mg Tab, 1 TAB PO DAILY, #180 TAB 1 Refill 04/15/24 Information Source: Patient Mode of Arrival: EMS Severity: Moderate Timing: Minutes Duration: Since onset Prehospital treatment: None Onset: At Rest Cardiac Risk Factors: HTN PE Risk Factors: None History of: ME Modifying Factors: Nothing Associated Signs and Symptoms: SOB Past Medical History PAST MEDICAL HISTORY: Anxiety, CHF, Depression, DM, HTN, ME Surgical History: Tubal Ligation POSITION CLASSIFIER History: No Pertinent POSITION CLASSIFIER History Family History Family History: Reviewed,noncontributory to illness, No family hx of Cancer, No family hx of DM, No family hx of Heart esme, No family hx of HTN, No family hx ofKidney esme, No family hx of Liver esme, No family hx of Lung esme, No family hx of Stroke Social History Smoker: Cigarettes Alcohol: Occasionally Drugs: Marijuana Lives In: Home Constitutional: denies: chills, diaphoresis, fatigue, fever, malaise, sweats, weakness, others EENTM: denies: blurred vision, double vision, ear bleeding, ear discharge, ear drainage, ear pain, ear ringing, eye pain, eye redness, hearing loss, mouth pain, mouth swelling, nasal discharge, nose bleeding, nose congestion, nose pain, photophobia, tearing, throat pain, throat swelling, voice changes, others Respiratory: denies: cough, hemoptysis, orthopnea, SOB at rest, shortness of breath, SOB with excertion, stridor, wheezing, others Cardiovascular: denies: chest pain, dizzy spells, diaphoresis, Dyspnea on exertion, edema, irregular heart beat, left arm pain, lightheadedness, palpitations, PND, syncope, others Gastrointestinal: denies: abdomen distended, abdominal pain, blood streaked bowels, constipated, diarrhea, dysphagia, difficulty swallowing, hematemesis, melena, nausea, poor appetite, poor fluid intake, rectal bleeding, rectal pain, vomiting, others Genitourinary: denies: abnormal vagina bleeding, burning, dyspareunia, dysuria, flank pain, frequency, hematuria, incontinence, pain, , vagina discharge, urgency, others Neurological: denies: dizziness, fainting, headache, left sided numbness, left sided weakness, numbness, paresthesia, pre-existing deficit, right sided numbness, right sided weakness, seizure, speech problems, tingling, tremors, weakness, others Musculoskeletal: denies: back pain, gout, joint pain, joint swelling, muscle pain, muscle stiffness, neck pain, others Integumetry: denies: bruises, change in color, change in hair/nails, dryness, laceration, lesions, lumps, rash, wounds, others Allergic/Immunocompromised: denies: Difficulty Healing, Frequent Infections, Hives, Itching, others Hematologic/Lymphatic: denies: anemia, blood clots, easy bleeding, easy bruising, swollen glands, others Endocrine: denies: excessive hunger, excessive sweating, excessive thirst, excessive urination, flushing, intolerance to cold, intolerance to heat, unexplained weight gain, unexplained weight loss, others Psychiatric: reports: anxiety All Other Systems: Reviewed and Negative Physical Exam General Appearance: Moderate Distress HEENT: Normal ENT Inspection, Pharynx Normal, TMs Normal Neck: Full Range of Motion, Non-Tender, Normal, Normal Inspection Respiratory: Chest Non-Tender, Lungs Clear, No Accessory Muscle Use, No Respiratory Distress, Normal Breath Sounds Cardiovascular: No Edema, No JVD, No Murmur, No Gallop, Normal Peripheral Pulses, Regular Rate/Rhythm Breast Exam: Deferred Gastrointestinal: No Organomegaly, Non Tender, No Pulsatile Mass, Normal Bowel Sounds, Soft Genitalia: Deferred Pelvic: Deferred Rectal: Deferred Extremities: No calf tenderness, Normal capillary refill, Normal inspection, Normal range of motion, Non-tender, No pedal edema Musculoskeletal : Apperance: Normal Neurologic: Alert, auto travel counselor II-XII nml as Tested, No Motor Deficits, Normal Affect, Normal Mood, No Sensory Deficits Cerebellar Function: Normal Reflexes: Normal Skin: Dry, Normal Color, Warm Peripheral Pulses: 3+ Radial (R), 3+ Radial (L) Lymphatic: No Adenopathy EKG EKG : Pulse Rate (adult): 93 [place]: Normal Cardiac Rhythm: NSR Block: LBBB Hypertrophy: LAE ST: Normal Was a procedure done? Was a procedure done?: No CP Differential Dx Differential Diagnosis: A-fib, A-Flutter, Angina, Anxiety / Panic Attack, Atrial Dysrhythmia, Electrolyte Disorder Differential Diagnosis: HTN Essential, HTN Accelerated X-Ray, Labs, Meds, VS Vital Signs Date Time Temp Pulse Resp B/P (MAP) Pulse Ox O2 Delivery O2 Flow Rate FiO2 01/06/25 10:08 93 01/06/25 09:45 93 01/06/25 09:41 97.8 95 16 163/119 (134) 98 97.8 Lab Test 01/06/25 09:50 Range/Units White Blood Count Pending Red Blood Count Pending Hemoglobin Pending Hematocrit Pending Mean Corpuscular Volume Pending Mean Corpuscular Hemoglobin Pending Mean Corpuscular Hemoglobin Concent Pending Red Cell Distribution Width Pending Platelet Count Pending Mean Platelet Volume Pending Neutrophils (%) (Auto) Pending Lymphocytes (%) (Auto) Pending Monocytes (%) (Auto) Pending Basophils (%) (Auto) Pending Neutrophils # (Auto) Pending Lymphocytes # (Auto) Pending Monocytes # (Auto) Pending Sodium Level Pending Potassium Level Pending Chloride Level Pending Carbon Dioxide Level Pending Anion Gap Pending Blood Urea Nitrogen Pending Creatinine Pending Glomerular Filtration Rate Calc Pending BUN/Creatinine Ratio Pending Serum Glucose Pending Calcium Level Pending Troponin I High Sensitivity 12 </=34 ng/L Patient alert. Complaining of chest pain. EKG reviewed does show left bundle branch block. Vitals stable. Answering questions. Cardiology consultation. Cardiac marker within normal limits. Blood pressure elevated. She has not been taking her medication. Was given labetalol. Was given aspirin. Reviewed her history. Explained to the patient. Continue monitoring. Time of 1ST Reevaluation: 10:15 Reevaluation 1ST: Unchanged Patient Education/Counseling: Diagnosis, Treatment Family Education/Counseling: No Family Present Departure 1 Departure Time of Disposition: 10:33 Impression: Primary Impression: Chest pain of unknown etiology Additional Impression: Hypertensive emergency Disposition: ADMITTED INPATIENT Admit to: Med Surg Condition: Guarded Critical Care Note Critical Care Time?: Yes (90 min-critical care time only) Critical care comment: Blood pressure elevated Stability Stability form required: No Heart Score Heart Score: Heart Score Response (Comments) Value History Slightly Suspicious 0 EKG Normal 0 Age 45-64 1 Risk Factors >3 or Hx ASHD 2 Troponin Normal limit 0 Total 3 I personally scribed for ISABEL LYLE MD ([email or web address]) on 01/06/25 at 09:44. Electronically submitted by Holly Oswald ([employer]). I personally scribed for ISABEL LYLE MD ([email or web address]) on 01/06/25 at 10:08. Electronically submitted by Holly Oswald ([email or web address]). ISABEL LYLE MD Jan 06, 2025 09:44
--- NOTE | 2025-01-06 09:46 | ECG ---
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
[2025-01-06 10:32] LABS: Basophils # (auto) 0.1 10 ^3/uL (0-0.2); Chloride 104 mmol/L (98-107); Eosinophils # (auto) 0.1 10 ^3/uL (0-0.8); Hemoglobin 15.5 g/dL (12.2-16.2); Mean Corpuscular Volume 80.2 fL (80.0-100.0); Potassium 4.1 mmol/L (3.5-5.1)
[2025-01-06 10:33] LABS: Anion Gap 9 (5-15); Calcium 9.7 mg/dL (8.7-10.4); Carbon Dioxide 23 mmol/L (20-31)
[2025-01-06 10:35] LABS: Eosinophils % (auto) 0.9 % (0.0-7.0); Hematocrit 47.3 % (36.0-46.0); Lymphocytes # (auto) 2.7 10 ^3/uL (0.4-5.4); Lymphocytes % (auto) 24.1 % (10.0-50.0); Mean Corpuscular Hemoglobin 26.3 pg (28.0-32.0); Mean Corpuscular Hgb Conc. 32.8 g/dL (32.0-36.0); Monocytes # (auto) 0.8 10 ^3/uL (0-1.3); Monocytes % (auto) 6.9 % (0.0-12.0); Neutrophils # (auto) 7.6 10 ^3/uL (1.6-8.6); Neutrophils % (auto) 67.1 % (37.0-80.0); Nucleated Red Blood Cells % 0.1 %; Platelet Count (auto) 330 10^3/uL (140-450); Red Blood Cells 5.89 10^6/uL (4.0-5.20); Red Cell Distribution Width 19.4 % (11.8-14.3); White Blood Cell 11.4 10^3/uL (4.4-10.8)
[2025-01-06 10:38] LABS: BUN/Creatinine Ratio 22.8 (10.0-20.0); Blood Urea Nitrogen 21 mg/dL (9-23)
[2025-01-06 10:39] LABS: Glucose 229 mg/dL (74-106); Sodium 136 mmol/L (136-145)
[2025-01-06 11:00] VITALS: PULSE 78; RESP 16; O2SAT 95
[2025-01-06] MEDS: ASPirin 325 MG TAB PO ONE (11:01)
[2025-01-06] MEDS: NITROGLYCERIN 0.4 MG SL TAB SL ONE (11:04)
[2025-01-06] MEDS: LABETALOL HCL 20 MG/4 ML VL IV ONE (11:07)
[2025-01-06] MEDS ORDERED: NITROGLYCERIN 0.4 MG SL TAB SL PRN (14:00)
[2025-01-06] MEDS ORDERED: MORPHINE SULFATE INJ 2 MG/ml SYRG IV PRN (14:00)
[2025-01-06] MEDS: EMPAGLIFLOZIN 10 MG TAB PO ONE (14:50)
[2025-01-06] MEDS: SPIRONOLACTONE 25 MG TAB PO ONE (14:51)
[2025-01-06] MEDS: busPIRone HCL 10 MG TAB PO ONE (14:51)
[2025-01-06] MEDS: ENOXAPARIN SOD 40 MG/0.4 ML SYRINGE SC ONE (14:51)
[2025-01-06] MEDS: CARVEDILOL 3.125 MG TAB PO ONE (14:51)
[2025-01-06] MEDS: SACUBITRIL-VALSARTAN 24mg/26mg TAB PO ONE (14:54)
[2025-01-06 15:29] VITALS: BP 152/117; PULSE 91; RESP 18; TEMP 97.3; O2SAT 97
[2025-01-06] MEDS: hydrALAZINE HCL 20 MG/ML VL IV PRN (15:38)
--- NOTE | 2025-01-06 15:40 | DVHHP2 ---
History of Present Illness Reason for Visit: Uncontrolled hypertension History of Present Illness This is a 49-year-old female with history of hypertension, DM, CHF, anxiety, depression and VA presents to ED with chief complaint of uncontrolled hypertension. Patient states, she is coming from [facility] where she complained of severe anxiety and insomnia x3 days. The patient ended up going to the emergency room to evaluate her elevated blood pressure as she had associated symptoms of shortness of breaths. Upon evaluation her blood pressure read at 169/122, states noncompliance with blood pressure medication due to lack of insurance. She reports not being able to take her medication for almost six months. She is concerned about her symptoms and would like to be further evaluated and treated. The patient will be admitted under hospitalist care to the telemetry unit for continuous monitoring. The patient denies fever, chills, headache, dizziness, palpitation, chest pain, nausea, vomiting, abdominal pain, diarrhea, constipation and other associated symptoms. The plan has been discussed with the patient and primary RN in which all questions concerns have been addressed. Cardiovascular: CHF, HTN, VA Psych: Anxiety Endocrine: Diabetes Family History: None Smoke: No ALCOHOL: occassional Drugs: Marijuana Lives: with Family Domestic Violence: Neg Review of Systems Respiratory: Shortness of breath Allergies: Coded Allergies: NO KNOWN ALLERGIES (Unverified , 04/13/24) Medications Current Medications Medications Dose Ordered Sig/Valentine Route Start Time Stop Time Status Last Admin Dose Admin Hydralazine HCl 10 mg Q6HP PRN IV 01/06/25 14:00 Enoxaparin Sodium 40 mg DAILY SC 01/07/25 10:00 Acetaminophen 650 mg Q6HP PRN PO 01/06/25 14:00 Nitroglycerin 0.4 mg Q5MINP PRN SL 01/06/25 14:00 Morphine Sulfate 2 mg Q30M PRN IV 01/06/25 14:00 Aspirin 81 mg DAILY PO 01/07/25 10:00 Atorvastatin Calcium 40 mg HS PO 01/06/25 22:00 Buspirone HCl 5 mg Q12HR PO 01/06/25 22:00 Carvedilol 3.125 mg Q12HR PO 01/06/25 22:00 Empaglifozin 10 mg DAILY PO 01/07/25 10:00 Fluoxetine HCl 20 mg DAILY PO 01/07/25 10:00 Quetiapine Fumarate 25 mg HS PO 01/06/25 22:00 Sacubitril/ Valsartan 1 tab BID PO 01/06/25 22:00 Spironolactone 25 mg DAILY PO 01/07/25 10:00 Exam Vital Signs Vital Signs Date Time Temp Pulse Resp B/P (MAP) Pulse Ox O2 Delivery O2 Flow Rate FiO2 01/06/25 15:29 97.3 91 18 152/117 (129) 97 97.3 01/06/25 11:00 Room Air* 0 21 General Appearance: Alert, Oriented X3, Cooperative, No acute distress HEENT: Atraumatic, PERRLA, Mucous membr. moist/pink Respiratory: Clear to auscultation, Normal air movement Cardiovascular: Normal S1, Normal S2, No murmurs Abdominal: Normal bowel sounds, Soft, No tenderness, No hepatospenomegaly, No masses Extremities: No clubbing, No cyanosis, No edema, Normal pulses, No tende rness/swelling Skin: No rashes, No breakdown Neuro: Normal gait, Normal speech, Strength at 5/5 X4 ext, Normal tone, Sensation intact, Cranial nerves 3-12 NL, Reflexes 2+ Psych/Mental Status: Mental status NL Labs/Xrays Labs Test 01/06/25 12:49 01/06/25 09:50 Range/Units Troponin I High Sensitivity 11 </=34 ng/L White Blood Count 11.4 H 4.4-10.8 10^3/uL Red Blood Count 5.89 H 4.0-5.20 10^6/uL Hemoglobin 15.5 12.2-16.2 g/dL Hematocrit 47.3 H 36.0-46.0 % Mean Corpuscular Volume 80.2 80.0-100.0 fL Mean Corpuscular Hemoglobin 26.3 L 28.0-32.0 pg Mean Corpuscular Hemoglobin Concent 32.8 32.0-36.0 g/dL Red Cell Distribution Width 19.4 H 11.8-14.3 % Platelet Count 330 140-450 10^3/uL Mean Platelet Volume 8.9 6.9-10.8 fL Neutrophils (%) (Auto) 67.1 37.0-80.0 % Lymphocytes (%) (Auto) 24.1 10.0-50.0 % Monocytes (%) (Auto) 6.9 0.0-12.0 % Eosinophils (%) (Auto) 0.9 0.0-7.0 % Basophils (%) (Auto) 1.0 0.0-2.0 % Neutrophils # (Auto) 7.6 1.6-8.6 10 ^3/uL Lymphocytes # (Auto) 2.7 0.4-5.4 10 ^3/uL Monocytes # (Auto) 0.8 0-1.3 10 ^3/uL Eosinophils # (Auto) 0.1 0-0.8 10 ^3/uL Basophils # (Auto) 0.1 0-0.2 10 ^3/uL Nucleated Red Blood Cells 0.1 % Sodium Level 136 136-145 mmol/L Potassium Level 4.1 3.5-5.1 mmol/L Chloride Level 104 98-107 mmol/L Carbon Dioxide Level 23 20-31 mmol/L Anion Gap 9 5-15 Blood Urea Nitrogen 21 9-23 mg/dL Creatinine 0.92 0.550-1.02 mg/dL Glomerular Filtration Rate Calc 77 >90 mL/min BUN/Creatinine Ratio 22.8 H 10.0-20.0 Serum Glucose 229 H 74-106 mg/dL Calcium Level 9.7 8.7-10.4 mg/dL B-Type Natriuretic Peptide 892.48 0-100 pg/mL Assessment/Plan Assessment/Plan Uncontrolled hypertension----patient complained of severe anxiety insomnia x3 days and went to crisis Center; ended up having elevated blood pressure 169/122 when in the ER Patient unable to take her prescribed medication due to lack of insurance for more than six months Admit to telemetry unit for continuous monitoring Reviewed CBC which is normal Cardiac enzyme negative x3 Reviewed BMP which is normal IV hydralazine 10 mg IV push q.6 p.r.n. SBP greater than 160 mmHg Resume prescribed BP medication Social consult to assist with community support on medication as she does not have medical insurance Type 2 DM-uncontrolled Regular insulin mild SS a.c. and HS Accu-Cheks per protocol 1800 ADA diet HGB A1c pending CHF Continue prescribed medication Echocardiogram-pending BNP pending Hyperlipidemia Continue atorvastatin as prescribed Anxiety/depression Continue prescribed medications Reconcile home medication DVT prophylaxis PUD prophylaxis Labs in a.m. Discussed plan of care with the patient in which all questions concerns have been addressed Plan discussed with: Patient My Orders Orders - YVONNE FLORENCE [employer] Procedure Category Date Status Time Hydralazine Injection PHA 01/06/25 In Process (Apresoline Inject 14:00 Admit ADMIT 01/06/25 Transmitted 13:57 2 Gm Sodium Diet DIET 01/06/25 Transmitted Dinner Enoxaparin Sodium PHA 01/07/25 In Process (Lovenox) 10:00 Complete Blood Count LAB 01/07/25 Verified 04:00 Comprehensive LAB 01/07/25 Verified Metabolic Panel 04:00 Condition: Fair ABRAN 01/06/25 In Process 13:57 Acetaminophen Tablet PHA 01/06/25 In Process (Tylenol Tablet) 14:00 Bedrest With Bathroom ABRAN 01/06/25 In Process Privileg 13:57 Nitroglycerin PHA 01/06/25 In Process Sublingual (Ntrostat 14:00 Morphine Sulfate PHA 01/06/25 In Process Injection 14:00 Stat Ekg For Chest ABRAN 01/06/25 In Process Pain 13:57 Notify Md Of Changes ABRAN 01/06/25 In Process From Base 13:57 Licensed Occupational Therapist For [facility] 01/06/25 In Process 24 Hours 13:57 Emergency Dysrhythmia ABRAN 01/06/25 In Process Protocol 13:57 Rhythm Strips Once ABRAN 01/06/25 In Process Every Shift 13:57 Oxygen By Nasal RT 01/06/25 Transmitted Cannula 13:57 Echo 2d Mode Cardiac US 01/06/25 Logged DOP 13:57 Aspirin Enteric PHA 01/07/25 In Process Coated Tablet 10:00 Atorvastatin (Lipitor) PHA 01/06/25 In Process 22:00 Buspirone Hcl Tablet PHA 01/06/25 In Process (Buspar Tablet) 22:00 Carvedilol Tablet PHA 01/06/25 In Process (Coreg Tablet) 22:00 Empagliflozin PHA 01/07/25 In Process (Jardiance) 10:00 Fluoxetine Capsule PHA 01/07/25 In Process (Prozac Capsule) 10:00 Quetiapine Fumarate PHA 01/06/25 In Process Tablet (Seroquel Tab 22:00 Sacubitril-Valsartan PHA 01/06/25 In Process (Entresto 24-26 Mg 22:00 Spironolactone PHA 01/07/25 In Process (Aldactone) 10:00 Date of Service: Jan 06, 2025 Billing Provider: YVONNE FLORENCE Common Visit Codes: [id number] INP/OBS CARE (HIGH) YVONNE FLORENCE Jan 06, 2025 15:40
[2025-01-06] MEDS: ACETAMINOPHEN 325 MG TAB PO PRN (17:43)
[2025-01-06] MEDS ORDERED: DEXTROSE (50%) 50ML SYRG IV PRN (18:00)
[2025-01-06] MEDS: HYDROcodone-ACET 5/325MG TAB PO ONE (19:03)
--- NOTE | 2025-01-06 20:57 | DVHSR ---
APPROVED REPORT EXAM: Two-dimensional and M-mode echocardiogram with Doppler and color Doppler. Blood Pressure: 146/112 mmHg INDICATION Systolic/Diastolic Heart Failure RISK FACTORS Height: 5' 3", Weight: 283 DIMENSIONS LVDd6.7 (3.8-5.7cm)LA (2D)6.2 (1.9-4.0cm)Aortic Root2.9 (2.0-3.7cm) LVDs5.7 (2.5-4.0cm)LA (MM) (1.9-4.0cm)Aortic Cusp Exc1.7 (1.5-2.0cm) EF (%) 30.0 (55-70%)Rt. Atrium5.1 (1.9-4.0cm)Asc. Aorta cm IVSd1.1 (0.7-1.1cm)RV (D) (1.8-2.4cm) PWd1.0 (0.7-1.1cm) Mitral Valve MitralMitral Stenosis E wave1.90m/sMV Mean GR.mmHg E/A ratio0.02D MVAcm2 Aortic Valve Aortic ValveAortic Stenosis V10.70m/Zach Mean GR.3mmHg V21.10m/Zach Peak GR.5mmHg LVOT Diameter2.0 (1.8-2.4cm)Doppler AVA2.00cm2 Pulmonic Valve V20.80m/s Tricuspid Valve TR Velocity3.90m/s [id number] Conclusion MODERATELY DILATED LV DYSKINESIS OF IVS SEVERE HYPOKINESIS OF ANTERIOR WALL LV EF IS 25% AND IS MODERATELY REDUCED MODERATELY DILATED LA AND ASSOCIATED MODERATE DEGREE MR RVSP IS 70 MM OF HG AND IS VERY HIGH SEVERE PULMONARY HYPERTENSION NO EFFUSION NORMAL VALVES
[2025-01-06 21:02] VITALS: BP 126/90; PULSE 82; RESP 20; TEMP 97.8; O2SAT 95
[2025-01-06] MEDS: ACCU-CHEK COMFORT CURVE STRIP VI SCH (21:17)
[2025-01-06] MEDS: InsuLIN REG 1unit/0.01ml Soln (100units/ml) SC SCH (21:17)
[2025-01-06] MEDS: SACUBITRIL-VALSARTAN 24mg/26mg TAB PO SCH (21:32)
[2025-01-06] MEDS: QUEtiapine FUMARATE 25 MG TAB PO SCH (21:33)
[2025-01-06] MEDS: busPIRone HCL 10 MG TAB PO SCH (21:33)
[2025-01-06] MEDS: ATORVASTATIN 20 MG TAB PO SCH (21:45)
[2025-01-06] MEDS: CARVEDILOL 3.125 MG TAB PO SCH (21:46)
[2025-01-06 22:50] LABS: Urine Bacteria None Seen /hpf (None Seen)
[2025-01-06 22:57] LABS: Urine Blood Negative /uL (Negative); Urine Clarity Clear (Clear); Urine Color Light-Yellow (Yellow); Urine Protein, UAD Negative (Negative); Urine Specific Gravity 1.019 (1.001-1.035); Urine Squamous Epithelial Cell FEW /hpf (<5); Urine Urobilinogen Normal (Negative); Urine WBC < 1 /HPF (0-5); Urine pH 7.5 (5.0-9.0)
[2025-01-07] VITALS (8 sets, daily range): BP systolic 112–132; BP diastolic 73–96; PULSE 62–82; RESP 15–18; TEMP 97.2–98.3; O2SAT 93–97
[2025-01-07 05:48] LABS: Basophils # (auto) 0.1 10 ^3/uL (0-0.2); Eosinophils # (auto) 0.2 10 ^3/uL (0-0.8); Hemoglobin 14.9 g/dL (12.2-16.2); Lymphocytes % (auto) 21.4 % (10.0-50.0); Mean Corpuscular Hgb Conc. 32.3 g/dL (32.0-36.0); Monocytes # (auto) 0.9 10 ^3/uL (0-1.3); Nucleated Red Blood Cells % 0.1 %
[2025-01-07 05:50] LABS: Basophils % (auto) 1.1 % (0.0-2.0); Eosinophils % (auto) 1.8 % (0.0-7.0); Mean Corpuscular Hemoglobin 26.1 pg (28.0-32.0); Mean Corpuscular Volume 80.6 fL (80.0-100.0); Monocytes % (auto) 9.9 % (0.0-12.0); Neutrophils # (auto) 6.2 10 ^3/uL (1.6-8.6); Neutrophils % (auto) 65.8 % (37.0-80.0); Platelet Count (auto) 313 10^3/uL (140-450); Red Blood Cells 5.71 10^6/uL (4.0-5.20); Red Cell Distribution Width 19.9 % (11.8-14.3); White Blood Cell 9.5 10^3/uL (4.4-10.8)
[2025-01-07 05:59] LABS: Alanine Aminotransferase 27 U/L (7-40); Albumin 3.8 g/dL (3.2-4.8); Anion Gap 9 (5-15); Aspartate Aminotransferase 19 U/L (13-40); BUN/Creatinine Ratio 24.4 (10.0-20.0); Bilirubin, Total 0.7 mg/dL (0.2-1.0); Blood Urea Nitrogen 19 mg/dL (9-23); Calcium 9.1 mg/dL (8.7-10.4); Potassium 3.7 mmol/L (3.5-5.1); Sodium 137 mmol/L (136-145); Total Protein 6.4 g/dL (5.7-8.2)
[2025-01-07 06:11] LABS: Alkaline Phosphatase 116 U/L (46-116); Carbon Dioxide 20 mmol/L (20-31); Chloride 108 mmol/L (98-107); Glucose 138 mg/dL (74-106)
[2025-01-07] MEDS: ENOXAPARIN SOD 40 MG/0.4 ML SYRINGE SC SCH (09:09)
[2025-01-07] MEDS: ASPirin-EC 81 mg tab PO SCH (09:10)
[2025-01-07] MEDS: EMPAGLIFLOZIN 10 MG TAB PO SCH (09:11)
[2025-01-07] MEDS: FLUoxetine HCL 20 MG CAP PO SCH (09:11)
[2025-01-07] MEDS: SPIRONOLACTONE 25 MG TAB PO SCH (09:11)
[2025-01-07] MEDS ORDERED: ASPirin 81 mg TAB PO SCH (10:00)
--- NOTE | 2025-01-07 13:43 | DVHPN2 ---
Reviewed: Care Plan, H&P, Labs, Medications, Previous Orders, Radiology Changes from previous H/P or p: No Changes Respiratory: Shortness of breath Objective Vitals Vital Signs Date Time Temp Pulse Resp B/P (MAP) Pulse Ox O2 Delivery O2 Flow Rate FiO2 01/07/25 12:53 97.2 69 16 131/94 (106) 93 97.2 01/07/25 08:00 Room Air* 0 21 Intake/Output Intake and Output 01/07/25 07:00 Intake Total 500 ml Balance 500 ml Intake Oral 500 ml # Voids 7 Medications Current Medications Medications Dose Ordered Sig/Valentine Route Start Time Stop Time Status Last Admin Dose Admin Hydralazine HCl 10 mg Q6HP PRN IV 01/06/25 14:00 01/06/25 15:38 10 MG Enoxaparin Sodium 40 mg DAILY SC 01/07/25 10:00 01/07/25 09:09 40 MG Acetaminophen 650 mg Q6HP PRN PO 01/06/25 14:00 01/06/25 22:48 650 MG Nitroglycerin 0.4 mg Q5MINP PRN SL 01/06/25 14:00 Morphine Sulfate 2 mg Q30M PRN IV 01/06/25 14:00 Aspirin 81 mg DAILY PO 01/07/25 10:00 01/07/25 09:10 81 MG Atorvastatin Calcium 40 mg HS PO 01/06/25 22:00 01/06/25 21:45 40 MG Buspirone HCl 5 mg Q12HR PO 01/06/25 22:00 01/07/25 09:10 5 MG Carvedilol 3.125 mg Q12HR PO 01/06/25 22:00 01/07/25 09:10 3.125 MG Empaglifozin 10 mg DAILY PO 01/07/25 10:00 01/07/25 09:11 10 MG Fluoxetine HCl 20 mg DAILY PO 01/07/25 10:00 01/07/25 09:11 20 MG Quetiapine Fumarate 25 mg HS PO 01/06/25 22:00 01/06/25 21:33 25 MG Sacubitril/ Valsartan 1 tab BID PO 01/06/25 22:00 01/07/25 09:09 1 TAB Spironolactone 25 mg DAILY PO 01/07/25 10:00 01/07/25 09:11 25 MG Diagnostic Test (Pha) 1 strip ACHS 01/06/25 22:00 01/07/25 11:30 1 STRIP Insulin Human Regular ACHS SC 01/06/25 22:00 01/07/25 11:30 2 UNITS Dextrose 50 ml UD PRN IV 01/06/25 18:00 Laboratory Results Laboratory Tests 01/07/25 05:28 Chemistry Test 01/07/25 05:28 Albumin 3.8 g/dL (3.2-4.8) Calcium Level 9.1 mg/dL (8.7-10.4) Total Protein 6.4 g/dL (5.7-8.2) LFT Test 01/07/25 05:28 Alanine Aminotransferase (ALT) 27 U/L (7-40) Alkaline Phosphatase 116 U/L (46-116) Aspartate Amino Transferase (AST) 19 U/L (13-40) Total Bilirubin 0.7 mg/dL (0.2-1.0) Urinalysis Test 01/06/25 22:50 Urine Color Light-yellow (Yellow) Urine Clarity Clear (Clear) Urine pH 7.5 (5.0-9.0) Urine Specific [place] 1.019 (1.001-1.035) Urine Protein Negative (Negative) Urine Ketones Negative (Negative) Urine Blood Negative /uL (Negative) Urine Nitrite Negative (Negative) Urine Bilirubin Negative (Negative) Urine Urobilinogen Normal mg/dL (Negative) Urine Leukocyte Esterase Negative /uL (Negative) Urine RBC None seen /hpf (0 - 4) Urine Microscopic WBC < 1 /HPF (0-5) Urine Squamous Epithelial Cells Few /hpf (<5) Urine Bacteria None seen /hpf (None Seen) Urine Glucose 4+ mg/dL (Normal) H Urine Test Negative (Negative) Labs and/or images reviewed: Labs reviewed by me, Image(s) reviewed by me Assessment/Plan Assessment/Plan Uncontrolled hypertension History of [place] Diabetes Anxiety Depression Congestive heart failure Noncompliance Time spent 45 minutes Plan discussed with: Patient Date of Service: Jan 07, 2025 Billing Provider: ADOLFO BAJWA MD Common Visit Codes: [id number] INP/OBS CARE(HIGH) ADOLFO BAJWA MD Jan 07, 2025 13:43
[2025-01-07] MEDS: ALPRAZolam 0.5 MG TAB PO SCH (16:07)
--- NOTE | 2025-01-07 23:31 | DVHINCON2 ---
Date of service: Jan 07, 2025 Referring Physician Epi Reason for Consultation CHF exacerbation History of Present Illness This is a 49 year old female with a PMH of DM, GA, HTN, CHF, Anxiety, and Depression presents to the ED for a complaint of elevated blood pressure. Patient states, she is coming from a local crisis center where she complained of severe anxiety and insomnia x3days; patient was released to the ED due to elevated blood pressure. Upon arrival to the ED, patient complains of new onset symptoms of shortness of breath. Patient's blood pressure read at 169/122mmHg. Patient reports non-compliance with blood pressure medication due to lack of insurance. Patient was admitted to the hospital. I am asked to consult on this patient. Family History: Cardiovascular disease G8 MOTHER Diabetes mellitus G8 MOTHER FH: cancer G8 MOTHER FH: kidney failure G8 MOTHER Allergies: Coded Allergies: NO KNOWN ALLERGIES (Unverified , 04/13/24) Home Meds Active Scripts Fluoxetine HCl (Fluoxetine HCl) 20 Mg Cap, 20 MG PO DAILY for 30 Days, #30 CAP Prov:REI MOTA RESIDENT 04/17/24 Quetiapine Fumerate (QUETIAPINE FUMARATE) 25 Mg Tab, 25 MG PO HS for 30 Days, #30 TAB Prov:REI MOTA RESIDENT 04/17/24 Buspirone HCl (Buspirone HCl) 10 Mg Tab, 5 MG PO Q12HR for 30 Days, #60 TAB Prov:REI MOTA RESIDENT 04/17/24 Spironolactone (Aldactone) 25 Mg Tab, 25 MG PO DAILY for 90 Days, #90 TAB Prov:ISABELLA BARRIOS RESIDENT 04/15/24 Sacubitril-Valsartan (Entresto 24-26 mg) 1 Tab Tab, 1 TAB PO BID for 90 Days, #180 TAB Prov:ISABELLA BARRIOS RESIDENT 04/15/24 Empagliflozin (Jardiance) 10 Mg Tab, 10 MG PO DAILY for 90 Days, #90 TAB Prov:ISABELLA BARRIOS RESIDENT 04/15/24 Atorvastatin Calcium (ATORVASTATIN CALCIUM) 20 Mg Tab, 40 MG PO HS for 90 Days, #180 TAB Prov:ISABELLA BARRIOS RESIDENT 04/15/24 Carvedilol (COREG) 3.125 Mg Tab, 3.125 MG PO Q12HR for 90 Days, #180 TAB Prov:ISABELLA BARRIOS RESIDENT 04/15/24 Aspirin (Aspir-Low) 81 Mg Tab, 81 MG PO DAILY for 90 Days, #90 MG Prov:DANNA BARRIOSEN RESIDENT 04/15/24 Reported Medications Carvedilol (Coreg) 6.25 Mg Tab, 1 TAB PO DAILY, #180 TAB 1 Refill 04/15/24 Current Medications Current Medications Medications (Trade) Dose Ordered Sig/Valentine Route PRN Reason Start Time Stop Time Status Last Admin Aspirin 81 mg DAILY PO 01/07/25 10:00 01/06/25 14:18 DC Enoxaparin Sodium (Lovenox) 40 mg DAILY SC 01/07/25 10:00 01/07/25 09:09 Aspirin (Ecotrin Enteric Coated Tablet) 81 mg DAILY PO 01/07/25 10:00 01/07/25 09:10 Atorvastatin Calcium (Lipitor) 40 mg HS PO 01/06/25 22:00 01/06/25 21:45 Buspirone HCl (Buspar Tablet) 5 mg Q12HR PO 01/06/25 22:00 01/07/25 09:10 Carvedilol (Coreg Tablet) 3.125 mg Q12HR PO 01/06/25 22:00 01/07/25 09:10 Empaglifozin (Jardiance) 10 mg DAILY PO 01/07/25 10:00 01/07/25 09:11 Fluoxetine HCl (PROzac CAPSULE) 20 mg DAILY PO 01/07/25 10:00 01/07/25 09:11 Quetiapine Fumarate (SEROquel TABLET) 25 mg HS PO 01/06/25 22:00 01/06/25 21:33 Sacubitril/ Valsartan (Entresto 24-26 Mg tab) 1 tab BID PO 01/06/25 22:00 01/07/25 09:09 Spironolactone (Aldactone) 25 mg DAILY PO 01/07/25 10:00 01/07/25 09:11 Diagnostic Test (Pha) (Accu-Chek Comfort Curve T) 1 strip ACHS 01/06/25 22:00 01/07/25 17:00 Insulin Human Regular (InsuLIN R) ACHS SC 01/06/25 22:00 01/07/25 18:10 Alprazolam (Xanax Tablet) 1 mg TID PO 01/07/25 14:59 01/07/25 16:07 Review of Systems Constitutional: denies: chills, diaphoresis, fatigue, fever, malaise, sweats, weakness, others EENTM: denies: blurred vision, double vision, ear bleeding, ear discharge, ear drainage, ear pain, ear ringing, eye pain, eye redness, hearing loss, mouth pain, mouth swelling, nasal discharge, nose bleeding, nose congestion, nose pain, photophobia, tearing, throat pain, throat swelling, voice changes, others Respiratory: denies: cough, hemoptysis, orthopnea, SOB at rest, shortness of breath, SOB with excertion, stridor, wheezing, others Cardiovascular: denies: chest pain, dizzy spells, diaphoresis, Dyspnea on exertion, edema, irregular heart beat, left arm pain, lightheadedness, palpitations, PND, syncope, others Gastrointestinal: denies: abdomen distended, abdominal pain, blood streaked bowels, constipated, diarrhea, dysphagia, difficulty swallowing, hematemesis, melena, nausea, poor appetite, poor fluid intake, rectal bleeding, rectal pain, vomiting, others Genitourinary: denies: abnormal vagina bleeding, burning, dyspareunia, dysuria, flank pain, frequency, hematuria, incontinence, pain, , vagina discharge, urgency, others Neurological: denies: dizziness, fainting, headache, left sided numbness, left sided weakness, numbness, paresthesia, pre-existing deficit, right sided numbness, right sided weakness, seizure, speech problems, tingling, tremors, weakness, others Musculoskeletal: denies: back pain, gout, joint pain, joint swelling, muscle pain, muscle stiffness, neck pain, others Integumetry: denies: bruises, change in color, change in hair/nails, dryness, laceration, lesions, lumps, rash, wounds, others Allergic/Immunocompromised: denies: Difficulty Healing, Frequent Infections, Hives, Itching, others Hematologic/Lymphatic: denies: anemia, blood clots, easy bleeding, easy bruising, swollen glands, others Endocrine: denies: excessive hunger, excessive sweating, excessive thirst, excessive urination, flushing, intolerance to cold, intolerance to heat, unexplained weight gain, unexplained weight loss, others Psychiatric: reports: anxiety All Other Systems: Reviewed and Negative Vital Signs Vital Signs Date Time Temp Pulse Resp B/P (MAP) Pulse Ox O2 Delivery O2 Flow Rate FiO2 01/07/25 17:00 97.2 62 15 112/76 (88) 95 97.2 01/07/25 08:00 Room Air* 0 21 Physical Exam GENERAL: Alert and oriented x 3. No acute distress. EYES: PERRL, EOMI. Anicteric. HENT: Moist mucous membranes. LUNGS: Clear to auscultation bilaterally. CARDIOVASCULAR: Regular rate and rhythm. ABDOMEN: Soft, nontender and nondistended. EXTREMITIES: No edema. NEUROLOGIC: No focal neurological deficits. SKIN: Warm, dry. Labs/Diagnostic Data Labs Test 01/07/25 06:00 01/07/25 05:28 01/06/25 22:50 01/06/25 12:49 Range/Units POC Glucose 150 H 70-106 mg/dl White Blood Count 9.5 4.4-10.8 10^3/uL Red Blood Count 5.71 H 4.0-5.20 10^6/uL Hemoglobin 14.9 12.2-16.2 g/dL Hematocrit 46.0 36.0-46.0 % Mean Corpuscular Volume 80.6 80.0-100.0 fL Mean Corpuscular Hemoglobin 26.1 L 28.0-32.0 pg Mean Corpuscular Hemoglobin Concent 32.3 32.0-36.0 g/dL Red Cell Distribution Width 19.9 H 11.8-14.3 % Platelet Count 313 140-450 10^3/uL Mean Platelet Volume 8.5 6.9-10.8 fL Neutrophils (%) (Auto) 65.8 37.0-80.0 % Lymphocytes (%) (Auto) 21.4 10.0-50.0 % Monocytes (%) (Auto) 9.9 0.0-12.0 % Eosinophils (%) (Auto) 1.8 0.0-7.0 % Basophils (%) (Auto) 1.1 0.0-2.0 % Neutrophils # (Auto) 6.2 1.6-8.6 10 ^3/uL Lymphocytes # (Auto) 2.0 0.4-5.4 10 ^3/uL Monocytes # (Auto) 0.9 0-1.3 10 ^3/uL Eosinophils # (Auto) 0.2 0-0.8 10 ^3/uL Basophils # (Auto) 0.1 0-0.2 10 ^3/uL Nucleated Red Blood Cells 0.1 % Sodium Level 137 136-145 mmol/L Potassium Level 3.7 3.5-5.1 mmol/L Chloride Level 108 H 98-107 mmol/L Carbon Dioxide Level 20 20-31 mmol/L Anion Gap 9 5-15 Blood Urea Nitrogen 19 9-23 mg/dL Creatinine 0.78 0.550-1.02 mg/dL Glomerular Filtration Rate Calc 94 >90 mL/min BUN/Creatinine Ratio 24.4 H 10.0-20.0 Serum Glucose 138 H 74-106 mg/dL Calcium Level 9.1 8.7-10.4 mg/dL Total Bilirubin 0.7 0.2-1.0 mg/dL Aspartate Amino Transferase (AST) 19 13-40 U/L Alanine Aminotransferase (ALT) 27 7-40 U/L Alkaline Phosphatase 116 46-116 U/L Total Protein 6.4 5.7-8.2 g/dL Albumin 3.8 3.2-4.8 g/dL Urine Color Light-yellow Yellow Urine Clarity Clear Clear Urine pH 7.5 5.0-9.0 Urine Specific [place] 1.019 1.001-1.035 Urine Protein Negative Negative Urine Ketones Negative Negative Urine Blood Negative Negative /uL Urine Nitrite Negative Negative Urine Bilirubin Negative Negative Urine Urobilinogen Normal Negative mg/dL Urine Leukocyte Esterase Negative Negative /uL Urine RBC None seen 0 - 4 /hpf Urine Microscopic WBC < 1 0-5 /HPF Urine Squamous Epithelial Cells Few <5 /hpf Urine Bacteria None seen None Seen /hpf Urine Glucose 4+ H Normal mg/dL Urine Test Negative Negative Troponin I High Sensitivity 11 </=34 ng/L Test 01/06/25 09:50 Range/Units Hemoglobin A1c 7.2 H <5.7 % A1C B-Type Natriuretic Peptide 892.48 0-100 pg/mL Assessment Uncontrolled hypertension. History of GA. Diabetes. Anxiety. Depression. Congestive heart failure. Noncompliance. Plan/Recommendation I agree with your ongoing assessment and care of plan. Telemetry reviewed. Echocardiogram. Aspirin, Lipitor. Coreg. DVT prophylactics. IV Hydralazine for SBP >150. Morphine for pain management. Entresto. Additional plan as per the hospital course. A total of 45 minutes was spent reviewing the patient record, examining the patient, making a diagnostic and therapeutic plan, discussing this plan with medical personnel, following up on diagnostic studies and following the patient for clinical stability excluding any and all procedures. At least 50% of this time was spent in direct, [id number] contact. Plan discussed with: Patient JESSEE MCCARTHY MD Jan 07, 2025 19:01
[2025-01-08] VITALS (8 sets, daily range): BP systolic 102–133; BP diastolic 64–94; PULSE 56–78; RESP 17–20; TEMP 97.5–98.4; O2SAT 95–98
--- NOTE | 2025-01-08 09:42 | DVHPN2 ---
Reviewed: Care Plan, H&P, Labs, Medications, Previous Orders, Radiology Changes from previous H/P or p: No Changes Respiratory: Shortness of breath Objective Vitals Vital Signs Date Time Temp Pulse Resp B/P (MAP) Pulse Ox O2 Delivery O2 Flow Rate FiO2 01/08/25 09:00 98.3 75 20 133/94 (107) 98 98.3 01/07/25 20:00 Room Air* 0 21 Intake/Output Intake and Output 01/08/25 07:00 Intake Total 3620 ml Balance 3620 ml Intake Oral 3620 ml # Voids 11 # Bowel Movements 1 Medications Current Medications Medications Dose Ordered Sig/[place] Route Start Time Stop Time Status Last Admin Dose Admin Hydralazine HCl 10 mg Q6HP PRN IV 01/06/25 14:00 01/06/25 15:38 10 MG Enoxaparin Sodium 40 mg DAILY SC 01/07/25 10:00 01/07/25 09:09 40 MG Acetaminophen 650 mg Q6HP PRN PO 01/06/25 14:00 01/06/25 22:48 650 MG Nitroglycerin 0.4 mg Q5MINP PRN SL 01/06/25 14:00 Morphine Sulfate 2 mg Q30M PRN IV 01/06/25 14:00 Aspirin 81 mg DAILY PO 01/07/25 10:00 01/07/25 09:10 81 MG Atorvastatin Calcium 40 mg HS PO 01/06/25 22:00 01/07/25 21:03 40 MG Buspirone HCl 5 mg Q12HR PO 01/06/25 22:00 01/07/25 21:04 5 MG Carvedilol 3.125 mg Q12HR PO 01/06/25 22:00 01/07/25 21:04 3.125 MG Empaglifozin 10 mg DAILY PO 01/07/25 10:00 01/07/25 09:11 10 MG Fluoxetine HCl 20 mg DAILY PO 01/07/25 10:00 01/07/25 09:11 20 MG Quetiapine Fumarate 25 mg HS PO 01/06/25 22:00 01/07/25 21:04 25 MG Sacubitril/ Valsartan 1 tab BID PO 01/06/25 22:00 01/07/25 21:03 1 TAB Spironolactone 25 mg DAILY PO 01/07/25 10:00 01/07/25 09:11 25 MG Diagnostic Test (Pha) 1 strip ACHS 01/06/25 22:00 01/08/25 06:39 1 STRIP Insulin Human Regular ACHS SC 01/06/25 22:00 01/08/25 06:39 2 UNITS Dextrose 50 ml UD PRN IV 01/06/25 18:00 Alprazolam 1 mg TID PO 01/07/25 14:59 01/08/25 06:05 1 MG Laboratory Results Laboratory Tests 01/07/25 05:28 Urinalysis Test 01/06/25 22:50 Urine Color Light-yellow (Yellow) Urine Clarity Clear (Clear) Urine pH 7.5 (5.0-9.0) Urine Specific [place] 1.019 (1.001-1.035) Urine Protein Negative (Negative) Urine Ketones Negative (Negative) Urine Blood Negative /uL (Negative) Urine Nitrite Negative (Negative) Urine Bilirubin Negative (Negative) Urine Urobilinogen Normal mg/dL (Negative) Urine Leukocyte Esterase Negative /uL (Negative) Urine RBC None seen /hpf (0 - 4) Urine Microscopic WBC < 1 /HPF (0-5) Urine Squamous Epithelial Cells Few /hpf (<5) Urine Bacteria None seen /hpf (None Seen) Urine Glucose 4+ mg/dL (Normal) H Urine Test Negative (Negative) Labs and/or images reviewed: Labs reviewed by me, Image(s) reviewed by me Assessment/Plan Assessment/Plan Uncontrolled hypertension , consult by Dr. Knight appreciated Cardiomyopathy ejection fraction 25 %, ?AICD, wait for Cardiology input History of [place] Diabetes Anxiety Depression Congestive heart failure History of methamphetamine abuse in the past Noncompliance Time spent 45 minutes Plan discussed with: Patient My Orders Orders - ADOLFO BAJWA MD Procedure Category Date Status Time * Cardiology Consult CONS 01/07/25 Transmitted 13:55 Alprazolam Tablet PHA 01/07/25 In Process (Xanax Tablet) 14:59 Date of Service: Jan 08, 2025 Billing Provider: ADOLFO BAJWA MD Common Visit Codes: [id number] INP/OBS CARE(HIGH) ADOLFO BAJWA MD Jan 08, 2025 09:42
--- NOTE | 2025-01-08 23:33 | DVHPN2 ---
Progress Note - Dictate Date Seen: Jan 08, 2025 Medical Necessity Reason Pt with a Central, PICC or Fol: No Subjective Patient was seen and evaluated in follow up. No overnight events. Echo shows cardiomyopathy ejection fraction 25 %. Telemetry reviewed. vital signs Vital Sign Date Time Temp Pulse Resp B/P (MAP) Pulse Ox O2 Delivery O2 Flow Rate FiO2 01/08/25 22:07 74 118/81 01/08/25 21:00 97.5 18 95 97.5 01/08/25 08:00 Room Air* 0 21 Total Intake and Output 01/07/25 01/07/25 01/08/25 15:00 23:00 07:00 Intake Total 720 ml 2300 ml 600 ml Balance 720 ml 2300 ml 600 ml medications Current Medications Medications Dose Ordered Sig/Valentine Route Start Time Stop Time Status Last Admin Dose Admin Hydralazine HCl 10 mg Q6HP PRN IV 01/06/25 14:00 01/06/25 15:38 10 MG Enoxaparin Sodium 40 mg DAILY SC 01/07/25 10:00 01/08/25 09:54 40 MG Acetaminophen 650 mg Q6HP PRN PO 01/06/25 14:00 01/06/25 22:48 650 MG Nitroglycerin 0.4 mg Q5MINP PRN SL 01/06/25 14:00 Morphine Sulfate 2 mg Q30M PRN IV 01/06/25 14:00 Aspirin 81 mg DAILY PO 01/07/25 10:00 01/08/25 09:54 81 MG Atorvastatin Calcium 40 mg HS PO 01/06/25 22:00 01/08/25 22:09 40 MG Buspirone HCl 5 mg Q12HR PO 01/06/25 22:00 01/08/25 22:09 5 MG Carvedilol 3.125 mg Q12HR PO 01/06/25 22:00 01/08/25 22:07 3.125 MG Empaglifozin 10 mg DAILY PO 01/07/25 10:00 01/08/25 09:53 10 MG Fluoxetine HCl 20 mg DAILY PO 01/07/25 10:00 01/08/25 09:54 20 MG Quetiapine Fumarate 25 mg HS PO 01/06/25 22:00 01/08/25 22:07 25 MG Sacubitril/ Valsartan 1 tab BID PO 01/06/25 22:00 01/08/25 22:12 1 TAB Spironolactone 25 mg DAILY PO 01/07/25 10:00 01/08/25 09:53 25 MG Diagnostic Test (Pha) 1 strip ACHS 01/06/25 22:00 01/08/25 22:02 1 STRIP Insulin Human Regular ACHS SC 01/06/25 22:00 01/08/25 22:06 3 UNITS Dextrose 50 ml UD PRN IV 01/06/25 18:00 Alprazolam 1 mg TID PO 01/07/25 14:59 01/08/25 22:09 1 MG objective GENERAL: Alert and oriented x 3. No acute distress. EYES: PERRL, EOMI. Anicteric. HENT: Moist mucous membranes. LUNGS: Clear to auscultation bilaterally. CARDIOVASCULAR: Regular rate and rhythm. ABDOMEN: Soft, nontender and nondistended. EXTREMITIES: No edema. NEUROLOGIC: No focal neurological deficits. SKIN: Warm, dry. laboratory and microbiology Laboratory Tests 01/07/25 05:28 Test 01/07/25 05:28 Range/Units Serum Glucose 138 H 74-106 mg/dL Problem List Uncontrolled hypertension. History of [place]. Diabetes. Anxiety. Depression. Congestive heart failure. Noncompliance. Assessment/Plan Continued all current supportive medical care. Aspirin, Lipitor. Coreg. DVT prophylactics. IV Hydralazine for SBP >150. Morphine for pain management. Entresto. Additional plan as per the hospital course. Plan discussed with: Patient JESSEE MCCARTHY MD Jan 08, 2025 23:33
[2025-01-09 00:27] LABS: Cannabinoid Screen, Urine Pos (NEGATIVE)
[2025-01-09 00:28] LABS: Amphetamine Screen, Urine Neg (NEGATIVE); Barbiturate Scree,Urine Neg (NEGATIVE); Benzodiazephine Screen, Urine Pos (NEGATIVE); Cocaine Screen, Urine Neg (NEGATIVE); Opiate Scree,Urine Neg (NEGATIVE); Phencyclidine Screen, Urine Neg (NEGATIVE)
[2025-01-09 01:00] VITALS: BP 124/71; PULSE 81; RESP 19; TEMP 97.7; O2SAT 94
[2025-01-09 04:58] VITALS: BP 125/87; PULSE 65; RESP 18; TEMP 97.9; O2SAT 96
[2025-01-09 08:00] VITALS: PULSE 76; PULSE 79; RESP 20; O2SAT 94
[2025-01-09 08:15] VITALS: BP 132/87; PULSE 79; RESP 20; TEMP 97.3; O2SAT 94
--- NOTE | 2025-01-09 09:05 | DVHPN2 ---
Reviewed: Care Plan, H&P, Labs, Medications, Previous Orders, Radiology Changes from previous H/P or p: No Changes Respiratory: Shortness of breath Objective Vitals Vital Signs Date Time Temp Pulse Resp B/P (MAP) Pulse Ox O2 Delivery O2 Flow Rate FiO2 01/09/25 08:35 79 132/87 01/09/25 08:15 97.3 20 94 97.3 01/09/25 08:00 Room Air* 0 21 Intake/Output Intake and Output 01/09/25 07:00 Intake Total 3390 ml Balance 3390 ml Intake Oral 3390 ml # Voids 2 # Bowel Movements 1 Medications Current Medications Medications Dose Ordered Sig/[place]ent[place] Route Start Time Stop Time Status Last Admin Dose Admin Hydralazine HCl 10 mg Q6HP PRN IV 01/06/25 14:00 01/06/25 15:38 10 MG Enoxaparin Sodium 40 mg DAILY SC 01/07/25 10:00 01/09/25 08:36 40 MG Acetaminophen 650 mg Q6HP PRN PO 01/06/25 14:00 01/06/25 22:48 650 MG Nitroglycerin 0.4 mg Q5MINP PRN SL 01/06/25 14:00 Morphine Sulfate 2 mg Q30M PRN IV 01/06/25 14:00 Aspirin 81 mg DAILY PO 01/07/25 10:00 01/09/25 08:34 81 MG Atorvastatin Calcium 40 mg HS PO 01/06/25 22:00 01/08/25 22:09 40 MG Buspirone HCl 5 mg Q12HR PO 01/06/25 22:00 01/09/25 08:35 5 MG Carvedilol 3.125 mg Q12HR PO 01/06/25 22:00 01/09/25 08:35 3.125 MG Empaglifozin 10 mg DAILY PO 01/07/25 10:00 01/09/25 08:35 10 MG Fluoxetine HCl 20 mg DAILY PO 01/07/25 10:00 01/09/25 08:34 20 MG Quetiapine Fumarate 25 mg HS PO 01/06/25 22:00 01/08/25 22:07 25 MG Sacubitril/ Valsartan 1 tab BID PO 01/06/25 22:00 01/09/25 08:34 1 TAB Spironolactone 25 mg DAILY PO 01/07/25 10:00 01/09/25 08:35 25 MG Diagnostic Test (Pha) 1 strip ACHS 01/06/25 22:00 01/09/25 06:32 1 STRIP Insulin Human Regular ACHS SC 01/06/25 22:00 01/09/25 06:38 2 UNITS Dextrose 50 ml UD PRN IV 01/06/25 18:00 Alprazolam 1 mg TID PO 01/07/25 14:59 01/09/25 06:32 1 MG Laboratory Results Laboratory Tests 01/07/25 05:28 Urinalysis Test 01/06/25 22:50 Urine Color Light-yellow (Yellow) Urine Clarity Clear (Clear) Urine pH 7.5 (5.0-9.0) Urine Specific [place] 1.019 (1.001-1.035) Urine Protein Negative (Negative) Urine Ketones Negative (Negative) Urine Blood Negative /uL (Negative) Urine Nitrite Negative (Negative) Urine Bilirubin Negative (Negative) Urine Urobilinogen Normal mg/dL (Negative) Urine Leukocyte Esterase Negative /uL (Negative) Urine RBC None seen /hpf (0 - 4) Urine Microscopic WBC < 1 /HPF (0-5) Urine Squamous Epithelial Cells Few /hpf (<5) Urine Bacteria None seen /hpf (None Seen) Urine Glucose 4+ mg/dL (Normal) H Urine Test Negative (Negative) Labs and/or images reviewed: Labs reviewed by me, Image(s) reviewed by me Assessment/Plan Assessment/Plan Uncontrolled hypertension , consult by Dr. Knight appreciated Cardiomyopathy ejection fraction 25 %, cardiology consult by Dr. 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
[2025-01-09] MEDS ORDERED: BUSP5TAB51 PO (09:13)
[2025-01-09] MEDS ORDERED: FLUO1TAB14 PO (09:13)
[2025-01-09] MEDS ORDERED: ASPI-628 PO (09:13)
[2025-01-09] MEDS ORDERED: SPIR25TA PO (09:13)
[2025-01-09] MEDS ORDERED: QUET50TA PO (09:13)
[2025-01-09] MEDS ORDERED: SACU1TAB PO (09:13)
[2025-01-09] MEDS ORDERED: EMPA1TAB PO (09:13)
[2025-01-09] MEDS ORDERED: CARV-214 PO (09:13)
[2025-01-09] MEDS ORDERED: ATOR-507 PO (09:13)
--- NOTE | 2025-01-09 09:17 | DVHDS2 ---
Discharge Summary Date of Admission Jan 06, 2025 at 13:57 Date of Discharge: Jan 09, 2025 Admitting Diagnosis Shortness of breath Wounds: None Labs/Diagnostic Data: Laboratory Results Test 01/09/25 06:35 01/08/25 23:00 01/07/25 05:28 01/06/25 22:50 POC Glucose 131 mg/dl (70-106) Urine Opiates Screen Neg (NEGATIVE) Urine Fentanyl Screen Neg (NEGATIVE) Urine Barbiturates Screen Neg (NEGATIVE) Urine Phencyclidine Screen Neg (NEGATIVE) Urine Amphetamines Screen Neg (NEGATIVE) Urine Benzodiazepines Screen Pos (NEGATIVE) Urine Cocaine Screen Neg (NEGATIVE) Urine Cannabinoids Screen Pos (NEGATIVE) White Blood Count 9.5 10^3/uL (4.4-10.8) Red Blood Count 5.71 10^6/uL (4.0-5.20) Hemoglobin 14.9 g/dL (12.2-16.2) Hematocrit 46.0 % (36.0-46.0) Mean Corpuscular Volume 80.6 fL (80.0-100.0) Mean Corpuscular Hemoglobin 26.1 pg (28.0-32.0) Mean Corpuscular Hemoglobin Concent 32.3 g/dL (32.0-36.0) Red Cell Distribution Width 19.9 % (11.8-14.3) Platelet Count 313 10^3/uL (140-450) Mean Platelet Volume 8.5 fL (6.9-10.8) Neutrophils (%) (Auto) 65.8 % (37.0-80.0) Lymphocytes (%) (Auto) 21.4 % (10.0-50.0) Monocytes (%) (Auto) 9.9 % (0.0-12.0) Eosinophils (%) (Auto) 1.8 % (0.0-7.0) Basophils (%) (Auto) 1.1 % (0.0-2.0) Neutrophils # (Auto) 6.2 10 ^3/uL (1.6-8.6) Lymphocytes # (Auto) 2.0 10 ^3/uL (0.4-5.4) Monocytes # (Auto) 0.9 10 ^3/uL (0-1.3) Eosinophils # (Auto) 0.2 10 ^3/uL (0-0.8) Basophils # (Auto) 0.1 10 ^3/uL (0-0.2) Nucleated Red Blood Cells 0.1 % Sodium Level 137 mmol/L (136-145) Potassium Level 3.7 mmol/L (3.5-5.1) Chloride Level 108 mmol/L (98-107) Carbon Dioxide Level 20 mmol/L (20-31) Anion Gap 9 (5-15) Blood Urea Nitrogen 19 mg/dL (9-23) Creatinine 0.78 mg/dL (0.550-1.02) Glomerular Filtration Rate Calc 94 mL/min (>90) BUN/Creatinine Ratio 24.4 (10.0-20.0) Serum Glucose 138 mg/dL (74-106) Calcium Level 9.1 mg/dL (8.7-10.4) Total Bilirubin 0.7 mg/dL (0.2-1.0) Aspartate Amino Transferase (AST) 19 U/L (13-40) Alanine Aminotransferase (ALT) 27 U/L (7-40) Alkaline Phosphatase 116 U/L (46-116) Total Protein 6.4 g/dL (5.7-8.2) Albumin 3.8 g/dL (3.2-4.8) Urine Color Light-yellow (Yellow) Urine Clarity Clear (Clear) Urine pH 7.5 (5.0-9.0) Urine Specific [place] 1.019 (1.001-1.035) Urine Protein Negative (Negative) Urine Ketones Negative (Negative) Urine Blood Negative /uL (Negative) Urine Nitrite Negative (Negative) Urine Bilirubin Negative (Negative) Urine Urobilinogen Normal mg/dL (Negative) Urine Leukocyte Esterase Negative /uL (Negative) Urine RBC None seen /hpf (0 - 4) Urine Microscopic WBC < 1 /HPF (0-5) Urine Squamous Epithelial Cells Few /hpf (<5) Urine Bacteria None seen /hpf (None Seen) Urine Glucose 4+ mg/dL (Normal) Urine Test Negative (Negative) Test 01/06/25 12:49 01/06/25 09:50 Troponin I High Sensitivity 11 ng/L (</=34) Hemoglobin A1c 7.2 % A1C (<5.7) B-Type Natriuretic Peptide 892.48 pg/mL (0-100) Other Laboratory Tests 01/07/25 05:28 Brief Hx & Hospital Course: 81-year-old female with multiple medical problems including diabetes anxiety depression congestive heart failure history of [place] cardiomyopathy uncontrolled hypertension noncompliant ran out of medications came in tetanus of breaths. 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 Patient feels better with the minimal shortness of breaths and being discharged home prescriptions for all the medications sent to the pharmacy she will follow up with the primary Dr and Cardiology Dr. Knight patient has a history of methamphetamine abuse advised to quit using methamphetamine. General condition stable but poor at the time of discharge. Consults/Reason for consult Cardiology Dr. Kirsten Knight Operations or Procedures Echocardiogram Condition at Discharge: Poor Final Diagnosis/Problems List Uncontrolled hypertension , consult by Dr. Knight appreciated Cardiomyopathy ejection fraction 25 %, cardiology consult by Dr. 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 Kirsten Knight in two weeks Medications: Transmitted to the pharmacy 35 (Time taken for discharge summary 35 minutes) Discharge Statement: "Patient was advised to return to the ER or call 911 if any headaches, dizziness, shortness of breath, chest pain, abdominal pain, bleeding, fevers, or worsening of medical condition. Patient was counseled about treatment plan, medications, possible side effects, patientverbalized understanding. All questions were answered to the best of my ability. This discharge took greater then 30 minutes in planning, reviewing documentation, counseling the patient, and discussing with other team members." ASSESSMENT ASSESSMENT Hospital Course Improved Assessment Uncontrolled hypertension , consult by Dr. Knight appreciated Cardiomyopathy ejection fraction 25 %, cardiology consult by Dr. 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
[2025-01-09 11:09] VITALS: BP 132/87; PULSE 79; RESP 18; TEMP 98.7; O2SAT 96
[2025-01-09 12:26] VITALS: BP 121/90; PULSE 64; RESP 20; TEMP 98.2; O2SAT 96
--- NOTE | 2025-01-09 21:20 | DVHPN2 ---
Progress Note - Dictate Date Seen: Jan 09, 2025 Medical Necessity Reason Pt with a Central, PICC or Fol: No Subjective Patient was seen and evaluated in follow up. Patient has no new complaints at this time. Patient denies any cardiac symptoms. Patient is cardiac stable for discharge. Telemetry reviewed. vital signs Vital Sign Date Time Temp Pulse Resp B/P (MAP) Pulse Ox O2 Delivery O2 Flow Rate FiO2 01/09/25 12:26 98.2 64 20 121/90 (100) 96 98.2 01/09/25 08:00 Room Air* 0 21 Total Intake and Output 01/08/25 01/08/25 01/09/25 15:00 23:00 07:00 Intake Total 2590 ml 800 ml Balance 2590 ml 800 ml objective GENERAL: Alert and oriented x 3. No acute distress. EYES: PERRL, EOMI. Anicteric. HENT: Moist mucous membranes. LUNGS: Clear to auscultation bilaterally. CARDIOVASCULAR: Regular rate and rhythm. ABDOMEN: Soft, nontender and nondistended. EXTREMITIES: No edema. NEUROLOGIC: No focal neurological deficits. SKIN: Warm, dry. laboratory and microbiology Laboratory Tests 01/07/25 05:28 Test 01/07/25 05:28 Range/Units Serum Glucose 138 H 74-106 mg/dL Problem List Uncontrolled hypertension. History of [place]. Diabetes. Anxiety. Depression. Congestive heart failure. Noncompliance. Assessment/Plan Continued all current supportive medical care. Aspirin, Lipitor. Coreg. DVT prophylactics. IV Hydralazine for SBP >150. Morphine for pain management. Entresto. Additional plan as per the hospital course. Plan discussed with: Patient JESSEE MCCARTHY MD Jan 09, 2025 21:20
== END 2025-01-09 13:25 | disposition home or self-care (01) | DRG 199 ==
LOC: ER 09:31 → OVERFLOW 13:57 → TELE-EAST 22:11
PROVIDERS: ADMIT Family Medicine; ATTEND Family Medicine
DX: I16.0 Hypertensive urgency (principal); I50.43 Acute on chronic combined systolic (congestive) and diastolic (congestive) heart failure; I42.9 Cardiomyopathy, unspecified; I11.0 Hypertensive heart disease with heart failure; E11.65 Type 2 diabetes mellitus with hyperglycemia; E78.5 Hyperlipidemia, unspecified; F32.A Depression, unspecified; F41.9 Anxiety disorder, unspecified; F17.210 Nicotine dependence, cigarettes, uncomplicated; F51.05 Insomnia due to other mental disorder; K59.00 Constipation, unspecified; I25.2 Old myocardial infarction; G47.00 Insomnia, unspecified; Z91.148 Patient's other noncompliance with medication regimen for other reason; Z83.3 Family history of diabetes mellitus; Z82.49 Family history of ischemic heart disease and other diseases of the circulatory system; Z59.71 Insufficient health insurance coverage
CPT/HCPCS: 36415; 80048; 80053; 80307; 81001; 81025; 82962; 83036; 83880; 84484; 85025; 93005; 93306; 99291; 99292; G0378; J1815